=== PATIENT | male | born 1970 | race Caucasian/White ===

== ENCOUNTER 2021-02-21 15:17 | Outpatient (REF) | payer BC, SELFPAY ==
[2021-02-21 18:42] LABS: MANUAL DIFF FLAG NO
[2021-02-21 18:44] LABS: Basophils Percent Auto 0.3 % (0-2); Eosinophils Absolute Auto 0.2 X10*3/uL (0.0-0.4); Eosinophils Percent Auto 2.7 % (0-4); Hematocrit 42.8 % (42-52); Hemoglobin 14.8 g/dl (14.0-18.0); Imm Gran Abs Auto 0.03 X10*3/uL (0.00-0.03); Imm Gran Pct Auto 0.4 % (0.0-0.4); Lymphocytes Absolute Auto 1.3 X10*3/uL (1.2-4.9); Lymphocytes Percent Auto 19.1 % (20-40); Mean Corpuscular HGB Conc 34.6 g/dl (31.0-36.0); Mean Corpuscular Hemoglobin 31.9 pg (27.0-33.0); Mean Corpuscular Volume 92.2 fL (80-98); Mean Platelet Volume 9.7 fL (9.4-12.4); Monocytes Absolute Auto 0.5 X10*3/uL (0.1-1.2); Monocytes Percent Auto 7.1 % (2-11); Neutrophils Absolute Auto 4.8 X10*3/uL (2.0-8.3); Neutrophils Percent Auto 70.4 % (45-73); Platelet Count 274 X10*3/uL (160-400); Red Blood Count 4.64 X10*6/uL (4.60-5.80); Red Cell Distribution Width 12.2 % (11.0-16.0); White Blood Count 6.8 X10*3/uL (4.8-10.8)
[2021-02-21 19:07] LABS: Alanine Aminotransferase 32 U/L (0-40); Albumin Level 4.4 g/dL (3.5-5.0); Alkaline Phosphatase 126 U/L (39-117); Anion Gap 13 (12-20); Aspartate Amino Transferase 26 U/L (5-37); Bilirubin Total 0.5 mg/dL (0.0-1.0); Blood Urea Nitrogen 16 mg/dL (9-16); C Reactive Protein 0.29 mg/dL (< or = 0.50); Calcium 9.2 mg/dL (8.4-10.2); Carbon Dioxide 26 mmol/L (22-29); Chloride 106 mmol/L (96-108); Estimated Glomerular Filt Rate > 60; Glucose Random 104 mg/dL (60-115); Iron 145 mcg/dL (45-160); Percent Iron Saturation 48 % (15-50); Sodium 141 mmol/L (135-145); Total Iron Binding Capacity 303 mcg/dL (228-428); Total Protein 7.1 g/dL (6.5-8.0); Unsaturated Iron Binding 158 ug/dL
[2021-02-21 19:28] LABS: Ferritin 215 ng/mL (20-250)
[2021-02-21 19:40] LABS: Folate 7.4 ng/mL (> or = 4.0); Vitamin B12 295 pg/mL (200-900)
[2021-02-21 20:02] LABS: Erythrocyte Sedimentation Rate 6 MM/HR (0-15)
== END 2021-02-21 15:18 | disposition home or self-care (01) ==
LOC: HO.MANLDS 15:17
PROVIDERS: PCP Internal Medicine; Visit Provider Internal Medicine
DX: D64.9 Anemia, unspecified (principal); R10.32 Left lower quadrant pain
CPT/HCPCS: 36415; 80053; 82607; 82728; 82746; 83540; 85025; 85652; 86140

== ENCOUNTER → 2021-03-21 09:59 | Outpatient (BNVA) | payer OTHER, SELFPAY | PROVIDERS: PCP Internal Medicine; Visit Provider Internal Medicine | DX: S46.211A Strain of muscle, fascia and tendon of other parts of biceps, right arm, initial encounter (principal); X58.XXXA Exposure to other specified factors, initial encounter | CPT/HCPCS: 99203 ==

== ENCOUNTER 2023-07-09 16:11 | Outpatient (REF) | payer BC, SELFPAY ==
[2023-07-09 17:32] LABS: MANUAL DIFF FLAG NO
[2023-07-09 17:42] LABS: Basophils Percent Auto 0.4 % (0-2); Eosinophils Absolute Auto 0.2 X10*3/uL (0.0-0.4); Eosinophils Percent Auto 2.4 % (0-4); Hematocrit 45.3 % (42.0-52.0); Hemoglobin 15.5 g/dl (14.0-18.0); Imm Gran Abs Auto 0.03 X10*3/uL (0.00-0.03); Imm Gran Pct Auto 0.4 % (0.0-0.4); Lymphocytes Absolute Auto 1.6 X10*3/uL (1.2-4.9); Lymphocytes Percent Auto 22.2 % (20-40); Mean Corpuscular HGB Conc 34.2 g/dl (31.0-36.0); Mean Corpuscular Hemoglobin 31.3 pg (27.0-33.0); Mean Corpuscular Volume 91.5 fL (80.0-98.0); Mean Platelet Volume 9.8 fL (9.4-12.4); Monocytes Absolute Auto 0.7 X10*3/uL (0.1-1.2); Monocytes Percent Auto 9.3 % (2-11); Neutrophils Absolute Auto 4.6 x10*3/uL (2.0-8.3); Neutrophils Percent Auto 65.3 % (45-73); Platelet Count 288 X10*3/uL (160-400); Red Blood Count 4.95 X10*6/uL (4.60-5.80); Red Cell Distribution Width 12.5 % (11.0-16.0); White Blood Count 7.1 X10*3/uL (4.8-10.8)
[2023-07-09 18:18] LABS: Alanine Aminotransferase 29 U/L (0-40); Albumin Level 4.5 g/dL (3.5-5.0); Alkaline Phosphatase 133 U/L (39-117); Anion Gap 13 (12-20); Aspartate Amino Transferase 23 U/L (5-37); Bilirubin Total 0.5 mg/dL (0.0-1.0); Blood Urea Nitrogen 14 mg/dL (9-16); Calcium 9.5 mg/dL (8.4-10.2); Carbon Dioxide 24 mmol/L (22-29); Chloride 109 mmol/L (96-108); Estimated Glomerular Filt Rate > 60; Glucose Random 97 mg/dL (60-115); Potassium 3.9 mmol/L (3.3-5.1); Sodium 142 mmol/L (135-145); Total Protein 7.4 g/dL (6.5-8.0)
[2023-07-09 18:49] LABS: Folate 8.3 ng/mL (> or = 4.0); Vitamin B12 363 pg/mL (200-900)
[2023-07-09 20:55] LABS: Erythrocyte Sedimentation Rate 10 MM/HR (0-15)
[2023-07-15 09:49] LABS: Testosterone, Total 322 ng/dL (250-1100)
== END 2023-07-09 16:12 | disposition home or self-care (01) ==
LOC: HO.MANLDS 16:11
PROVIDERS: Visit Provider Internal Medicine
DX: K57.32 Diverticulitis of large intestine without perforation or abscess without bleeding (principal); R53.83 Other fatigue
CPT/HCPCS: 36415; 80053; 82607; 82746; 84403; 85025; 85652

== ENCOUNTER 2023-09-15 07:49 | Outpatient (REF) | payer BC, SELFPAY ==
--- NOTE | ~2023-09-15 | CT_ITS ---
EXAMINATION: CT ABDOMEN AND PELVIS WITH CONTRAST CLINICAL INFORMATION: Severe left lower quadrant abdominal pain COMPARISON: None available. TECHNIQUE: Multidetector volumetric images were obtained from the superior aspect of the liver through the pubic symphysis following administration 85 mL of Omnipaque 350 intravenous contrast. Sagittal and coronal reformatted images were obtained on the technologist's workstation. Oral contrast: No This CT examination was performed using dose optimization techniques as appropriate, variously including the following: *Automated exposure control *Adjustment of mA and/or kV according to patient size (this includes techniques or standardized protocols for targeted exams where dose is matched to indication/reason for exam; i.e. extremities or head) *Use of iterative reconstruction technique DLP: 650 mGy-cm FINDINGS: LUNG BASES: The visualized lung bases are unremarkable. LIVER, GALLBLADDER, AND BILIARY TREE: The liver is normal in size, shape, and attenuation. No focal hepatic lesion or biliary ductal dilatation is present. The gallbladder is unremarkable with no evidence of radiopaque gallstones, gallbladder wall thickening, or obvious pericholecystic inflammatory changes. PANCREAS: Unremarkable. SPLEEN: Unremarkable. ADRENAL GLANDS: Unremarkable. KIDNEYS AND URETERS: The kidneys are normal in size, shape, and attenuation. No hydronephrosis, hydroureter, or calculi seen. No perinephric stranding. BLADDER: Unremarkable. GASTROINTESTINAL TRACT: The small and large bowel are unremarkable. The appendix is not seen ABDOMINAL WALL: No significant hernia is appreciated. LYMPH NODES: Normal. VASCULAR: Unremarkable. PELVIC VISCERA: Unremarkable. OSSEOUS STRUCTURES: Unremarkable. CT/CT abdomen pelvis w IV con IMPRESSION: No significant abnormality. No explanation for abdominal Fleischner guidelines were followed.
[2023-09-15] MEDS: iohexoL 350 MG/ML 100 ML INFUS..BTL 85 ML IV (08:23)
== END 2023-09-15 07:50 | disposition home or self-care (01) ==
LOC: HO.CT 07:49
PROVIDERS: PCP Internal Medicine; Visit Provider Internal Medicine
DX: K57.32 Diverticulitis of large intestine without perforation or abscess without bleeding (principal)
CPT/HCPCS: 74177; Q9967

== ENCOUNTER 2024-04-15 12:32 | Emergency (ER) | payer OTHER, BC, SELFPAY ==
--- NOTE | ~2024-04-15 | XR_ITS ---
EXAMINATION: XR WRIST, LEFT CLINICAL INFORMATION: Pain distal ulna COMPARISON: None available. TECHNIQUE: PA, lateral, and oblique views of the left wrist. FINDINGS: Question slight deformity of the distal ulna may reflect old fracture Suspect mild arthrosis of the distal radioulnar joint with probable marginal osteophytes. Remaining bones joints and soft tissues unremarkable. XR/XR wrist LT 2V IMPRESSION: 1. 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 2. Slight deformity of the distal ulna may reflect old fracture. 3. No acute abnormality
--- NOTE | 2024-04-15 12:35 | ED.UPPEXIN ---
HPI - Extremity Injury (Upper) General Chief Complaint: Extremity Injury, Upper Stated Complaint: WRIST INJURY AFTER FIGHTING WITH SUSPECT PER EMS Time Seen by Provider: 04/15/24 12:39 Source: patient and EMS Mode of arrival: EMS Limitations: no limitations History of Present Illness ED Provider: Ginger leung APRN HPI narrative: 53 yo male who is right handed with no known medical history presents to the ER with complaints of left wrist pain. 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 The patient reports that the event happened very quickly and he can not recall the specific mechanism of action but does remember that when he 1st felt pain his wrist was pinned underneath the patient. He denies any associated swelling, numbness, tingling of the extremity. He has informed his employer Related Data Allergies Allergy/AdvReac Type Severity Reaction Status Date / Time prochlorperazine Allergy Unknown Verified 04/15/24 12:38 [From Compazine] Review of Systems Review of Systems: Yes all other systems are reviewed and are negative Constitutional: Constitutional: Reports no additional constitutional complaints, Denies body ache(s), Denies chills, Denies fever(s), Denies headache(s) and Denies weakness Eyes: Eyes: Reports no additional eye complaints and Denies change in vision ENT: Reports system reviewed and no additional complaints, except as documented, Denies dizziness, Denies headache(s), Denies nasal congestion, Denies nasal discharge and Denies neck pain Cardiovascular: Cardiovascular: Reports no additional cardiovascular complaints, Denies chest pain, Denies leg edema and Denies dyspnea Respiratory: Respiratory: Reports no additional respiratory complaints, Denies cough and Denies dyspnea Gastrointestinal: Gastrointestinal: Reports no additional gastrointestinal complaints, Denies abdominal pain, Denies diarrhea, Denies nausea and Denies vomiting Genitourinary: Genitourinary: Denies urinary incontinence Musculoskeletal: Musculoskeletal: Reports no additional musculoskeletal complaints, Denies back pain, Reports arthralgias, Denies joint swelling, Denies limited range of motion, Denies neck pain, Denies numbness and Denies tingling Integumentary/Breasts: Skin/Breast: Reports system reviewed and no additional complaints, except as docu and Denies rash Neurologic: Reports system reviewed and no additional complaints, except as documented, Denies Abnormal speech present, Denies dizziness, Denies headache(s), Denies numbness, Denies tingling and Denies weakness FOR[facility]LY [facility] Past Medical History Attestation statement: The following information was validated with the patient. Source: old records reviewed and nursing notes reviewed Social History Social History Advance Directives: No Advance Directives Information Provided: No Physical Exam Vital Signs: Vital Signs: Last Vital Signs Temp 98 F 04/15/24 12:36 Pulse 90 04/15/24 12:36 Resp 19 04/15/24 12:36 BP 124/93 H 04/15/24 12:36 Pulse Ox 98 04/15/24 12:36 O2 Del Method Room Air 04/15/24 12:36 BMI result Body Mass Index 32.2 Const: General: cooperative, healthy appearing, comfortable and no acute distress Orientation/consciousness: patient oriented x3 Limitations: no limitations HEENT: Head: Yes normal to inspection Ears: hearing grossly normal bilaterally General nose exam: Normal external nose present Face and sinus: Yes normal facial exam Mouth: Normal oral and palatal mucosa present Throat: Yes posterior oropharynx normal Eyes: General: appearance normal, both eyes and all related structures Pupils: Equal, round and reactive pupils present Neck: Neck: Yes normal visual inspection Chest: Chest palpation & inspection: normal inspection of the chest Resp: Effort & Inspection: normal respiratory effort Auscultation: clear to auscultation bilaterally Cardio: Rate: regular rate Rhythm: regular rhythm Peripheral pulses: Peripheral pulses 2+ throughout GI: Inspection: Yes normal to inspection Palpation (GI): Soft to palpation and nontender Auscultation: normal bowel sounds Back/Spine/Pelvis: Thoracic/Lumbar Spine: thoracic and lumbar spine normal to inspection Skin: General skin exam: no rashes or lesions noted Neuro: General: patient oriented x3, no focal motor deficits and normal sensation to monofilament Cranial nerves: Yes Equal, round and reactive pupils present Cognition (Neuro): normal cognition Speech: No Abnormal speech present Gait exam (Neuro): Normal gait present Motor exam (neuro): 5/5 motor strength present throughout Extrem: Other: Over the dorsal aspect of the distal wrist, laterally there is some swelling. The patient does have full range of motion of the wrist. He has full range of motion of the distal and proximal joints. He has normal sensation. 2+ radial and ulnar pulses. There is no pain on palpation I am able to elicit. Course Course Course Narrative: This is a rapid medical exam performed by Kay Card NP: Additional HPI, ROS, PE not included below will be deferred to primary provider. Patient is a 53-year-old right hand dominant male presenting to the ED with complaint of left wrist pain which began prior to arrival. 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 Pain to distal ulnar aspect of wrist, rates at 2/10. Plan: X-ray Reevaluation(s) Reevaluation #1: x-ray shows slight deformity of distal ulna which may represent an old fracture. I spoke to the patient denies any previous injury or fractures to this wrist. Based on the patient's clinical exam of swelling over the distal ulna and deformity seen on x-ray I will place him in a wrist splint and recommend he follow up outpatient with Orthopedics and were connection. Reviewed worrisome signs and symptoms when to return to the emergency room. Comfortable plan for discharge home. Medical Decision Making Medical Decision Making MDM Narrative: 53 yo male who is right handed with no known medical history presents to the ER with complaints of left wrist pain. 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 The patient reports that the event happened very quickly and he can not recall the specific mechanism of action but does remember that when he 1st felt pain his wrist was pinned underneath the patient. He denies any associated swelling, numbness, tingling of the extremity. He has informed his employer. Over the dorsal aspect of the distal wrist, laterally there is some swelling. The patient does have full range of motion of the wrist. He has full range of motion of the distal and proximal joints. He has normal sensation. 2+ radial and ulnar pulses. There is no pain on palpation I am able to elicit. Will check x-ray Differential Diagnosis Differential Diagnoses: The differential diagnosis associated with the presentation includes sprain, strain, fracture low suspicion for complex fracture, dislocation or vascular injury Admission/Observation Consideration of admission/observation: Escalation of care including admission/observation considered Low suspicion for complex fracture, dislocation or vascular injury requiring advanced imaging, urgent orthopedic consultation Independent Interpretation I performed an independent interpretation of an: Plain X-Ray Interpretation: I independently viewed the x-ray and agree with the radiology report Radiology Impression Discussion of test interpretation with radiology: I have reviewed the radiologist's reading. Radiologist Impression: [address] [address] XRay Report Signed Patient: Segun Mckeon MR#: [id number] : 1970 Acct:[id number] Age/Sex: 53 / M ADM Date: 04/15/24 Loc: HO.ED Attending Dr: Ordering Physician: Rosa Crad NP Date of Service: 04/15/24 Procedure(s): XR wrist LT 2V Accession Number(s): [id number] cc: Bhaskar Fisher MD; Rosa Card NP~ EXAMINATION: XR WRIST, LEFT CLINICAL INFORMATION: Pain distal ulna COMPARISON: None available. TECHNIQUE: PA, lateral, and oblique views of the left wrist. FINDINGS: Question slight deformity of the distal ulna may reflect old fracture Suspect mild arthrosis of the distal radioulnar joint with probable marginal osteophytes. Remaining bones joints and soft tissues unremarkable. XR/XR wrist LT 2V IMPRESSION: 1. 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 2. Slight deformity of the distal ulna may reflect old fracture. 3. No acute abnormality Tests considered The following testing was considered but not selected: low concern for complex fracture, dislocation or vascular injury requiring advanced imaging Prescription Management I considered prescription management with: Pain Medication Procedures Orthopedic Splinting/Casting Injury #1: Side: left Upper Extremity Injury Location: wrist Upper Extremity Immobilizer: aluminum form splint Discharge Plan Discharge Clinical Impression: Acute wrist pain Patient Disposition: Home, Self-Care Instructions: Wrist Injury (ED) Additional Instructions: Your x-ray shows a deformity or your distal ulna. We do not see any clear fracture however based on the deformity we do believe that you should use a Velcro splint at home and follow-up outpatient with both Orthopedics and work connection before returning to work. Apply ice as needed. Take Motrin or Tylenol for pain. [place] [facility] [facility] [place] [facility] [place] Group[place] - 1 week Stand Alone Forms: Work/School Release Print Language: Nepali
[2024-04-15 12:36] VITALS: BP 124/93; BP 128/87; PULSE 90; PULSE 98; RESP 19; TEMP 36.6; O2SAT 97; O2SAT 98; BMI 32.2
[2024-04-15 14:50] VITALS: BP 124/93; PULSE 90; RESP 19; TEMP 36.6; O2SAT 98
== END 2024-04-15 14:50 | disposition home or self-care (01) ==
PROVIDERS: Emergency Provider Emergency Medicine; PCP Internal Medicine
DX: Z04.2 Encounter for examination and observation following work accident (principal); M25.532 Pain in left wrist
CPT/HCPCS: 73100; 99282; 99283

== ENCOUNTER 2025-01-02 14:56 | Outpatient (REF) | payer OTHER, BC, SELFPAY ==
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
--- OUTSIDE RECORDS SUMMARY | 2025-01-02 18:16 | XMS_ITS | Continuity of Care Document ---
Author Organization [facility], [facility] Address [address] 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 Patient tolerating medication well at current dose without adverse effects. Refilled as below. Discussed plan with patient, who expressed understanding. [place]. 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) MDM HIGH MUST MEET 2 OUT OF [...] Lab testostero ne, total, serum 2024 025 [facility], [address] [place] [address], [id number], 5 16:43:23 vitamin B12 + folate, serum or blood 2024 025 [facility], [address] [place] [address], [id number], 5 16:43:23 vitamin D, 25-hydroxy , total, serum 2024 [facility], [address] [place] [address], [address], 5 16:43:23 CBC w/ auto diff 2024 [facility], [address] [place] [address], [address], 5 16:43:23 TSH + T4, serum 2024 [facility], [address] [place] [address], [address], 5 16:43:23 CMP, serum or plasma 2024 025 [facility], [address] [place] [address], [address], 5 16:43:23 iron + TIBC + ferritin, serum 2024 025 [facility], [address] [place] [address], [address], 5 16:43:23 lyme disease igg+igm, serum, reflex western blot 2024 025 [facility], [address] [place] [address], [address], 5 16:43:23 Referral None recorded. Procedures None recorded. Surgeries None recorded. Imaging CT, chest, w/o contrast - Not Required Procedure codes: [id number] Reference #: [id number] 9Resramsey n: Completed on 01/02/2025 at 12:33 pm. Call ref #[id number] 39. 2024 025 [facility], [address] [place], [address], 13:50:02 Medication Orders lorazepam 0.5 mg tablet 2024 025 [id number], [address], [place], [id number], 16:40:19 Patient TargetsNo targets recorded. Patient Instructions Encounter Date Encounter Id Patient Instructions Last Modified By Organization Details Last Modified Time 12/27/2024 [id number] cough: care instructions Not available 12/27/2024 16:30:09 gastroesophageal reflux disease (GERD): care instructions Not available 12/27/2024 16:35:58 Reason for Referral None Reported. Problems Name Problem SNOMED Code Status Onset Date Resolution Date Notes Provider Name and Address Organization Details Recorded Time Maxillary sinusitis 48111597 Active 2018 Right Christi alcantar [facility] 5 08:51:14 Gastroesop hageal reflux disease 998582687 Active 2018 Christi alcantar [facility] Internal [facility] 5 08:51:06 Tendinitis 84971910 Active 2018 R great toe Christi alcantar [facility] 5 08:51:14 Disorder of vitamin B12 755543434 Active 2018 Christi alcantar [facility] 5 08:51:14 Peptic ulcer 29288937 Active 2018 Christi alcantar [facility] 5 08:51:14 Multiple nodules of lung 896175918 Active 2018 Matilda alcantar [facility] 0 12:10:29 COVID-19 376125697 Active 2021 Christisharon Roy null, [facility] 5 08:51:13 Diverticul itis 028190384 Active 2022 Bhaskar Fisher, [address], [address], [facility] 3 16:32:37 Diverticul itis of sigmoid colon 083271218 Active 2022 Christi Roy null, [facility] 5 08:51:06 Solitary nodule of lung 980166215 Active 2022 Christisharon Roy null, [facility] 5 08:51:06 Fatigue 95132068 Active 2022 Christisharon Roy null, [facility] 5 08:51:06 Anxiety 26430860 Active 2022 Christisharon Roy null, [facility] 5 08:51:06 Computed tomography result abnormal 845182319 Active 2022 Christi Roy null, [facility] 5 08:51:13 Left lower quadrant pain 260288454 Active 2022 Christi Ryo null, [facility] 5 08:51:13 Cough 83317567 Active 2024 Bhaskar Fisher, [address] [place] [address], [address], [facility] 5 16:29:27 Problem Notes None recorded. Procedures Surgical History Date Name Laterality Status Provider Name and Address Organization Details Recorded Time 03/14/20 19 Colonoscopy completed Bhaskar Fisher DO [address] [place] [address], [address], [facility] 03/17/2019 06:49:50 Imaging Results None recorded. Procedure Notes None recorded. Medical Equipment None Reported. Allergies Allergen ID Allergen Name Allergen Category Reaction Reaction Severity Criticality Documentation Date Start Date Code Code System Note Provider Name and Address Organization Details Recorded Time 2803 Compazine medicatio n Not available Not available Not available 12/09/201834199 6 RxNorm Humera alcantar [facility] 9 09:21:03 Medications Name Sig [...] Available Not Available Not Available amoxicillin 875 mg-tyra nguyen clavulanate 125 mg tablet TAKE 1 TABLET [...] Available Not Available Vitals Date Recorded Body height Body mass index (BMI) Body weight Heart rate Oxygen saturation Oxygen saturation in Arterial blood by Pulse oximetry Systolic blood pressure Diastolic blood pressure Provider Name and Address Organization Details Last Updated DateTime 5 180.34 cm 33.2 kg/m2 459002. 42 g 79 /min 96 % 96 % 122 mm[Hg] 72 mm[Hg] [facility] 16:21:47 Social History Question Answer Notes LastModified by Organizat ion Details LastModified Time Tobacco Smoking Status Never Smoker Not Available [facility] 08/27/2020 03:36:23 What Was The Date Of Your Most Recent Tobacco Screening? 12/27/2024 [email or web address] Information not available 12/27/2024 Sex: Unknown Functional Status None recorded. Mental Status None recorded. Family History Nothing Reported. Medical History No medical history recorded. Immunizations Vaccine Type Date Status Note Provider Nam e and Address Organization Details Recorded Time zoster recombinant 5 completed Bhaskar Fisher DO [address] [place] [address], [place], [address], [facility] 11/25/2024 18:38:14 Influenza, split virus, quadrivalent, preservative 8 completed Matilda alcantar [facility] 01/03/2020 12:10:34 Tdap 9 completed Matilda alcantar [facility] 01/03/2020 12:10:34 Influenza, split virus, quadrivalent, preservative 9 [facility] 12:10:34 Past Encounters Encounter ID Performer Location Encounter Start Date Encounter Closed Date Diagnosis/Indication Diagnosis SNOMED-CT Code Diagnosis ICD10 Code Diagnosis Note [id number] Bhaskar Fisher DO [facility] [address] [facility],[place] [address] 12/27/2024 16:07:11 12/29/2024 08:02:59 Renewal of prescription 533280012 Z76.0 done Depression screening 171 496362 Z13.31 SCREENING NEGATIVE Cough 11141574 R05.9 ct ordered Fatigue 37658029 R53.83 will need to chk lab et Gastroesop hageal reflux disease 402980136 K21.9 quiet Multiple n odules of lung 902292017 R91.8 reassuranc e and will have a repeat ct exam we will catch this on his ct orderd Anxiety 74808628 F41.9 Health Concerns Section Related Observation LastModified by Organization Detai ls LastModified Time None Recorded Concern Status LastModified by Organization Details LastModified Time None Recorded Payers Encounter Date Sequence Insurance Name Policy Number Policy Hutchins Covered Member ID Hutchins Member ID Guarantor Name 12/27/2024 1 [facility] [place] [id number] Segun Mckeon [id number] Segun Mckeon Notes Date Note Type Note Provider Name a nd Address Organization Details Recorded Time 12/27/2024 text/html here for rechkrelates that he has been ok but having a great deal of fatigue Bhaskar Fisher, DO [address] [facility], [place], [address], [place] [facility] 12/27/2024 16:50:01
[2025-01-02 18:34] LABS: MANUAL DIFF FLAG NO
[2025-01-02 18:39] LABS: Basophils Percent Auto 0.5 % (0-2); Eosinophils Absolute Auto 0.2 X10*3/uL (0.0-0.4); Hematocrit 41.3 % (42.0-52.0); Hemoglobin 14.2 g/dl (14.0-18.0); Imm Gran Abs Auto 0.02 X10*3/uL (0.00-0.03); Imm Gran Pct Auto 0.3 % (0.0-0.4); Lymphocytes Absolute Auto 1.6 X10*3/uL (1.2-4.9); Lymphocytes Percent Auto 24.6 % (20-40); Mean Corpuscular HGB Conc 34.4 g/dl (31.0-36.0); Mean Corpuscular Hemoglobin 32.1 pg (27.0-33.0); Mean Corpuscular Volume 93.2 fL (80.0-98.0); Mean Platelet Volume 9.6 fL (9.4-12.4); Monocytes Absolute Auto 0.6 X10*3/uL (0.1-1.2); Monocytes Percent Auto 8.7 % (2-11); Neutrophils Percent Auto 62.9 % (45-73); Platelet Count 252 X10*3/uL (160-400); Red Blood Count 4.43 X10*6/uL (4.60-5.80); Red Cell Distribution Width 12.3 % (11.0-16.0); White Blood Count 6.3 X10*3/uL (4.8-10.8)
[2025-01-02 19:43] LABS: Alanine Aminotransferase 43 U/L (0-40); Albumin Level 4.1 g/dL (3.5-5.0); Alkaline Phosphatase 134 U/L (39-117); Anion Gap 9 (12-20); Aspartate Amino Transferase 30 U/L (5-37); Bilirubin Total 0.5 mg/dL (0.0-1.0); Blood Urea Nitrogen 16 mg/dL (9-16); Carbon Dioxide 26 mmol/L (22-29); Chloride 111 mmol/L (96-108); Estimated Glomerular Filt Rate > 60; Ferritin 353 ng/mL (20-250); Glucose Random 90 mg/dL (60-115); Iron 132 mcg/dL (45-160); Percent Iron Saturation 51 % (15-50); Sodium 142 mmol/L (135-145); Total Iron Binding Capacity 259 mcg/dL (228-428); Total Protein 7.2 g/dL (6.5-8.0); Unsaturated Iron Binding 127 ug/dL
[2025-01-02 19:46] LABS: Vitamin B12 323 pg/mL (200-900)
[2025-01-02 20:13] LABS: T4 Thyroxine 5.1 ug/dL (4.5-12.0)
[2025-01-03 09:13] LABS: Lyme Abs Screen <0.90 index
[2025-01-06 16:47] LABS: VITAMIN D (1,25 OH) D3 39 pg/mL; Vit D (1,25-Dihydroxy) Total 39 pg/mL (18-72); Vitamin D (1,25 OH) D2 <8 pg/mL
[2025-01-08 23:44] LABS: Testosterone, Total 249 ng/dL (250-1100)
== END 2025-01-02 14:57 | disposition home or self-care (01) ==
LOC: HO.MANLDS 14:56
PROVIDERS: Visit Provider Internal Medicine
DX: R53.83 Other fatigue (principal)
CPT/HCPCS: 36415; 80053; 82607; 82652; 82728; 83540; 84403; 84436; 84443; 85025; 86617; 86618

== ENCOUNTER 2025-01-10 13:51 | Outpatient (REF) | payer OTHER, BC, SELFPAY ==
[2025-01-15 01:49] LABS: Testosterone, Total 276 ng/dL (250-1100)
== END 2025-01-10 13:52 | disposition home or self-care (01) ==
LOC: HO.MANLDS 13:51
PROVIDERS: Visit Provider Internal Medicine
DX: R89.1 Abnormal level of hormones in specimens from other organs, systems and tissues (principal)
CPT/HCPCS: 36415; 84403

== ENCOUNTER 2025-01-23 09:02 | Outpatient (REF) | payer BC, SELFPAY ==
--- OUTSIDE RECORDS SUMMARY | 2025-01-23 09:50 | XMS_ITS | Data Portability ---
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 Follow [place] 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) MDM HIGH MUST MEET 2 OUT OF [...] Lab testostero ne, total, serum 2024 025 [facility], [address] [place] [address], [address], 5 12:27:55 vitamin B12 + folate, serum or blood 2024 025 [facility], [address] [place] [address], [address], 5 13:28:04 vitamin D, 25-hydroxy , total, serum 2024 025 [facility], [address] [place] [address], [address], 5 11:40:57 CBC w/ auto diff 2024 025 [facility], [address] [place] [address], [address], 5 16:43:23 TSH + T4, serum 2024 025 [facility], [address] [place] [address], 119[address], 5 16:43:23 CMP, serum or plasma 2024 025 [facility], [address] [place] [address], [address], 5 16:43:23 iron + TIBC + ferritin, serum 2024 025 [facility], [address] [place] [address], [address], 5 16:43:23 lyme disease igg+igm, serum, reflex western blot 2024 025 [email or web address] [facility], [address] [place] [address], [address], 5 16:41:00 CBC w/ auto diff 2022 023 [facility], [address] [place] [address], [address], 3 11:31:10 CMP, serum or plasma 2022 023 [facility], [address] [place] [address], [address], 3 11:31:09 ESR (erythrocy te sedimentat ion rate), blood 2022 023 [facility], [address] [place] [address], [address], 3 16:10:44 testostero ne, total, serum 2022 023 [facility], [address] [place] [address], [address], 3 12:31:57 vitamin B12 + folate, serum or blood 2022 023 [facility], [address] [place] [address], [address], 3 11:31:10 vitamin B12 + folate, serum or blood 2020 021 [facility], [address] [place] [address], [address], 11:57:26 iron + TIBC + ferritin, serum 2020 021 [facility], [address] [place] [address], [address], 11:57:26 CMP, serum or plasma 2020 021 [...] w/o contrast - Not Required Procedure codes: 21135Acgo Reference #: [id number] 9Resolutio n: Completed on 01/02/2025 at 12:33 pm. Call ref #[id number] 39. 2024 025 [facility], [address] [place], [address], 5 08:17:15 XR, knee, 3 view 2020 [facility], [address] [place], [address], 08:41:56 XR, lumbosacra l spine, 2 or 3 view 2020 021 [facility], [address] [place] [address], [address], 09:45:10 CT, abdomen + pelvis, w/ contrast 2020 021 [facility], [address] [place], [address], 09:45:09 Medication Orders lorazepam 0.5 mg tablet 2024 025 [facility]26, [address] [place] [address], [id number], 5 16:40:19 amoxicilli n 875 mg-potassi um clavulanat e 125 mg tablet 2022 023 [facility], [address], [place], [id number], 4 11:04:20 lorazepam 0.5 mg tablet 2022 023 [facility] #61499, [address] [place], [place], [id number], 3 16:09:17 Medrol (Chinedu) 4 mg tablets in a dose pack [address] [facility]116, [address], [place], [id number], 3 15:08:17 azithromyc in 250 mg tablet [address] [facility]10017, [address], [place], [id number], 3 15:07:12 Patient TargetsNo targets recorded. Patient Instructions Encounter Date Encounter Id Patient Instructions Last Modified By Organization Details Last Modified Time 02/21/2021 [id number] back care and preventing injuries: care instructions Not available 02/21/2021 15:08:30 getting back to normal after low back pain: care instructions Not available 02/21/2021 15:08:30 learning about relief for back pain Not available 02/21/2021 15:08:30 abdominal pain: care instructions Not available 02/21/2021 15:03:52 07/09/2023 [id number] gastroesophageal reflux disease (GERD): care instructions Not available 07/09/2023 16:04:10 12/27/2024 [id number] cough: care instructions Not available 12/27/2024 16:30:09 gastroesophageal reflux disease (GERD): care instructions Not available 12/27/2024 16:35:58 Reason for Referral None Reported. Results Created Date Observation Date Name Description Value Unit Range Abnormal Flag Note LastModifiedBy Organization Detail LastModifiedTime 03/25/20 21 03/25/2021 XR, knee No observ ation record ed. [email or web address] [facility] [address] [facility], [place], [address], 04/09/2021 08:09:19 04/29/20 21 04/29/2021 MRI, knee, w/o contr ast No observ ation record ed. [email or web address] [facility] (Mri) [address] [place], [address], 04/30/2021 08:59:42 09/23/20 23 09/15/2023 CT, abdom en + pelvi s, w/wo contr ast No observ ation record ed. [facility] (Medical Records) [address] [place], [address], 09/26/2023 21:45:49 04/15/20 24 04/15/2024 XR, wrist No observ ation record ed. [email or web address] [facility] (Medical Records) [address] [place], [address], 04/17/2024 08:29:41 Result Notes None recorded. Problems Name Problem SNOMED Code Status Onset Date Resolution Date Notes Provider Name and Address Organization Details Recorded Time Maxillary sinusitis 05324892 Active 2018 Right CHARLI [facility] 5 08:51:14 Gastroeso phageal reflux disease 008556253 Active 2018 CHARLI Rey [facility] 5 08:51:06 Tendiniti s 03291960 Active 2018 R great toe Christi alcantar [facility] 5 08:51:14 Disorder of vitamin B12 728978241 Active 2018 CHARLI [facility] 5 08:51:14 Peptic ulcer 17291861 Active [address] [facility] 5 08:51:14 Multiple nodules of lung 890967290 Active 2018 Matilda Bucko null, [facility] 0 12:10:29 COVID-19 085024056 Active 2021 Christisharon Roy null, [facility] 5 08:51:13 Diverticu litis 454602093 Active 2022 Bhaskar Fisher, [address], [address], [facility] 3 16:32:37 Diverticu litis of sigmoid colon 269463290 Active 2022 Christi Roy null, [facility] 5 08:51:06 Solitary nodule of lung 921843346 Active 2022 Christi Roy null, [facility] 5 08:51:06 Fatigue 62551366 Active 2022 Christisharon Roy [facility], [facility] 5 08:51:06 Anxiety 38281297 Active 2022 Christisharon Roy [facility], [facility] 5 08:51:06 Computed tomograph y result abnormal 309769032 Active 2022 Christisharon Roy [facility], [facility] 5 08:51:13 Left lower quadrant pain 371350528 Active 2022 Christi Roy [facility] 5 08:51:13 Cough 40277899 Active 2024 Bhaskar Fisher, [address] [place] [address], [address], [facility] 5 16:29:27 Hypotesto steronism 013678685855 4 Active 2024 Bhaskar Fisher DO [address] [place] [address], [address], [facility] 5 14:41:36 Problem Notes None recorded. Procedures Surgical History Date Name Laterality Status Provider Name and Address Organization Details Recorded Time 03/14/20 19 Colonoscopy completed Bhaskar Fisher DO [address] [place] [address], [address], [facility] 03/17/2019 06:49:50 Imaging Results Imaging Date Name Status LastModified by Organiz ation Details LastModified Time 03/25/2021 XR, knee completed [email or web address] [facility] [address] [place], [address], 04/09/2021 08:09:19 04/29/2021 MRI, knee, w/o contrast completed [email or web address] [facility] (Mri) [address] [place], [address], 04/30/2021 08:59:42 09/15/2023 CT, abdomen + pelvis, w/wo contrast completed [facility] (Medical Records) [address] [place], [address], 09/26/2023 21:45:49 04/15/2024 XR, wrist completed [email or web address] [place] [address] (Medical Records) [address] [place], [address], 04/17/2024 08:29:41 Procedure Notes None recorded. Medical Equipment None Reported. Allergies Allergen ID Allergen Name Allergen Category Reaction Reaction Severity Criticality Documentation Date Start Date Code Code System Note Provider Name and Address Organization Details Recorded Time 2803 Compazine medicatio n Not available Not available Not available 12/09/2018 6 RxNorm Humera alcantar [facility] 9 09:21:03 Medications Name Sig [...] TO 8 HOURS NEEDED FOR NAUSEA DIRECTED 03/05 /2025 completed Not Available Not Available Not Available [...] Available Not Available lorazepam 0.5 mg tablet TAKE 1 TABLET BY MOUTH THREE TIMES DAILY FOR 10 DAYS NEEDED active Not Available Not Available No t Available cephalexin 500 mg capsule 10/21 completed Not [...] hr tablet, extended release TAKE 1 TABLET DAILY active Not Available Not Available No t [...] Address Organization Details Last Updated DateTime 1 088646. 8 g 32.9 kg/m2 180.34 cm 92 /min 98 % 98 % 116 mm[Hg] 70 mm[Hg] Bhaskar Fisher, DO [address] [place], [address], [facility] 1 14:50:09 Date Recorded Body height Body mass index (BMI) Body weight Heart rate Oxygen saturation Oxygen saturation in Arterial blood by Pulse oximetry Systolic blood pressure Diastolic blood pressure Provider Name and Address Organization Details Last Updated DateTime 1 180.34 cm 32.9 kg/m2 810374. 8 g 91 /min 98 % 98 % 120 mm[Hg] 70 mm[Hg] Humera Gil [facility] 1 10:34:04 Date Recorded Body weight Heart rate Oxygen saturation Oxygen saturation in Arterial blood by Pulse oximetry Systolic blood pressure Diastolic blood pressure Provider Name and Address Organization Details Last Updated DateTime 3 746865. 43 g 82 /min 98 % 98 % 135 mm[Hg] 65 mm[Hg] Pamela Conley [facility] 3 15:12:53 Date Recorded Body height Body mass index (BMI) Body weight Heart rate Oxygen saturation Oxygen saturation in Arterial blood by Pulse oximetry Systolic blood pressure Diastolic blood pressure Provider Name and Address Organization Details Last Updated DateTime 5 180.34 cm 33.2 kg/m2 282385. 42 g 79 /min 96 % 96 % 122 mm[Hg] 72 mm[Hg] Christi Roy [facility] 16:21:47 Social History Question Answer Notes LastModified by Organizat ion Details LastModified Time Tobacco Smoking Status Never Smoker Not Available [facility] 08/27/2020 03:36:23 What Was The Date Of Your Most Recent Tobacco Screening? 12/27/2024 [email or web address] Information not available 12/27/2024 Sex: Unknown Functional Status None recorded. Mental Status None recorded. Family History Nothing Reported. Medical History No medical history recorded. Immunizations Vaccine Type Date Status Note Provider Nam e and Address Organization Details Recorded Time zoster recombinant 5 completed Bhaskar Fisher [address], [address], [facility] 11/25/2024 18:38:14 Influenza, split virus, quadrivalent, preservative 8 completed Matilda alcantar [facility] 01/03/2020 12:10:34 Tdap 9 completed Matilda alcantar [facility] 01/03/2020 12:10:34 Influenza, split virus, quadrivalent, preservative 9 completed Matilda alcantar [facility] 01/03/2020 12:10:34 Past Encounters Encounter ID Performer Location Encounter Start Date Encounter Closed Date Diagnosis/Indication Diagnosis SNOMED-CT Code Diagnosis ICD10 Code Diagnosis Note [id number] Bhaskar Fisher [facility] [address] [facility],[place] [address] 12/09/2018 11:16:33 12/09/2018 12:38:33 Left flank pain 869673178 R10.9 resolving believe this was from his trip Orchitis a nd epididymitis 649989670 N45.3 Stress 95516164 Z73.3 Disorder o f vitamin B12 648926717 E53.8 [id number] Bhaskar Fisher [facility] [address] [facility] [facility],[place] [address] 01/04/2019 15:47:34 01/04/2019 16:56:34 Painful rectal bleeding 490413068 K62.5 will need to have a colonsocop y given his LLQ abd pain as well as its response to the cipro ?divertic? Hemorrhoids 47538118 K64 .9 treated with anusol [id number] Bhaskar Fisher [facility] [address] [facility] [facility] [address] 05/26/2019 09:08:33 05/26/2019 10:15:01 Inguinal pain 551754584 R10.2 is going to move [employer] and will let us know Multiple n odules of lung 560570534 R91.8 reassuranc e and will have a repeat ct exam Adult heal th examination 362876433 Z00.00 [id number] Bhaskar Fisher DO [facility] [address] [facility] [facility] [address] 01/03/2020 11:49:36 01/03/2020 12:34:12 Pain of left testicle 8709392424 0500286 N50.812 pain in left testicle must r/o signif testicular path first [id number] Bhaskar Fisher DO [facility] [address] [facility] [facility],[place] [address] 02/21/2021 14:46:11 02/21/2021 15:44:00 Left lower quadrant pain 856699900 R10.32 Anemia 222951015 D64.9 Low back pain 615341815 M54.5 [id number] THOMAS NELSON [facility] [address] [place] [address], [place] [address] 03/25/2021 10:28:00 03/25/2021 11:26:13 Pain in right knee 0688484576 83604 M25.561 needs XR of the knee, concern for possible tissue tear needs fu work up Rupture of tendon of biceps 760487742 M66.821 following with NEOAna Maraí [id number] Bhaskar Fisher [facility] Medicine [address] [facility] [facility],[place] [address] 06/16/2022 15:26:41 06/17/2022 08:14:32 COVID-19 482299121 U07.1 [id number] Bhaskar Fisher [facility] [address] [facility],[place] [address] 07/09/2023 15:02:05 07/09/2023 16:12:04 Gastroesophageal reflux disease 197390328 K21.9 quiet Diverticul itis of sigmoid colon 445420415 K57.32 Multiple n odules of lung 958238013 R91.8 reassuranc e and will have a repeat ct exam we will catch this on his ct orderd Fatigue 66871610 R53.83 willneed to chk lab et Anxiety 94459858 F41.9 [id number] Bhaskar Fisher [facility] [address] [facility],[place] [address] 12/27/2024 16:07:11 12/29/2024 08:02:59 Renewal of prescription 359097934 Z76.0 done Depression screening 171 434384 Z13.31 SCREENING NEGATIVE Cough 57908287 R05.9 ct ordered Fatigue 84082935 R53.83 will need to chk lab et Gastroesop hageal reflux disease 062547188 K21.9 quiet Multiple n odules of lung 933931601 R91.8 reassuranc e and will have a repeat ct exam we will catch this on his ct orderd Anxiety 90273410 F41.9 Health Concerns Section Related Observation LastModified by Organization Detai ls LastModified Time None Recorded Concern Status LastModified by Organization Details LastModified Time None Recorded Advance Directives Directive None Recorded Payers Encounter Date Sequence Insurance Name Policy Number Policy Hutchins Covered Member ID Hutchins Member ID Guarantor Name 02/21/2021 1 [place] [facility] ([facility] [id number] Segun Mckeon [id number] Segun Mckeon 03/25/2021 1 [place] [facility] ([facility] [id number] Segun Mckeon [id number] Segun Mckeon 06/16/2022 1 [place] [facility] ([facility] [id number] Segun Mckeon [id number] Segun Mckeon 07/09/2023 1 [place] [facility] ([facility] [id number] Segun Mckeon [id number] Segun Mckeon Mike 12/27/2024 1 [place] [facility] ([facility] [id number] Segun Mckeon [id number] Segun Mckeon Notes Date Note Type [...] chills some nocturnal diaphoresis no diarrhea Bhaskar Fisher, [address] [place], [address], [facility] 02/21/2021 15:12:53 1 text/html accident/poison [...] on his right side THOMAS NELSON [address] [facility], [place], [address], [facility] 03/25/2021 10:55:25 2 text/html patient is evaluated via tele/video assessment per patient consentduring current pandemiconset of covid today hit hard like [facility] test positiveheadache , fever to 101 , sore throat , aches Bhaskar Fisher DO [address] [place], [address], [facility] 06/16/2022 16:24:32 3 text/html here for rechk and is overall ok except for the probwith the diverticit is becoming a major problem in that it is recurring and he is having severe pain in d=sigmoid area and having abdom distentionno vomiting sl nauseadoes feel feverish Bhaskar Fisher DO [address] [place], [address], [facility] 07/09/2023 16:09:30 5 text/html here for rechkrelates that he has been ok but having a great deal of fatigue Bhaskar Fisher DO [address] [place], [address], [facility] 12/27/2024 16:50:01
[2025-01-27 10:53] LABS: Testosterone, Total 187 ng/dL (250-1100)
== END 2025-01-23 09:03 | disposition home or self-care (01) ==
LOC: HO.MANLDS 09:02
PROVIDERS: Visit Provider Internal Medicine
DX: R89.1 Abnormal level of hormones in specimens from other organs, systems and tissues (principal)
CPT/HCPCS: 36415; 84403

== ENCOUNTER 2025-02-07 09:08 | Outpatient (REF) | payer BC, SELFPAY ==
--- OUTSIDE RECORDS SUMMARY | 2025-02-07 09:51 | XMS_ITS | Data Portability ---
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 [place] 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) MDM HIGH MUST MEET 2 OUT OF [...] Lab testostero ne, total, serum 2024 025 [facility], [address] [place] [address], [address], 5 12:27:55 vitamin B12 + folate, serum or blood 2024 025 [facility], [address] [place] [address], [address], 5 13:28:04 vitamin D, 25-hydroxy , total, serum 2024 025 [facility], [address] [place] [address], [address], 5 11:40:57 CBC w/ auto diff 2024 025 [facility], [address] [place] [address], [address], 5 16:43:23 TSH + T4, serum 2024 025 [facility], [address] [place] [address], [address], 5 16:43:23 CMP, serum or plasma 2024 025 [facility], [address] [place] [address], [address], 5 16:43:23 iron + TIBC + ferritin, serum 2024 025 [facility], [address] [place] [address], [address], 5 16:43:23 lyme disease igg+igm, serum, reflex western blot 2024 025 [email or web address] [facility], [address] [place] [address], [address], 5 16:41:00 CBC w/ auto diff 2022 023 [facility], [address] [place] [address], [address], 3 11:31:10 CMP, serum or plasma 2022 023 [facility], [address] [place] [address], [address], 3 11:31:09 ESR (erythrocy te sedimentat ion rate), blood 2022 023 [facility], [address] [place] [address], [address], 3 16:10:44 testostero ne, total, serum 2022 023 [facility], [address] [place] [address], [address], 3 12:31:57 vitamin B12 + folate, serum or blood 2022 023 [facility], [address] [place] [address], [address], 3 11:31:10 vitamin B12 + folate, serum or blood 2020 021 [facility], [address] [place] [address], [address], 11:57:26 iron + TIBC + ferritin, serum 2020 021 [facility], [address] [place] [address], [address], 11:57:26 CMP, serum or plasma 2020 021 ANTOINETTE Not available 11:57:26 CBC w/ auto diff 2020 021 ANTOINETTE Not available 11:57:26 ESR (erythrocy te sedimentat ion rate), blood 2020 021 ANTOINETTE Not available 11:57:26 C-reactive protein, quantitati ve, serum or plasma 2020 021 [email or web address] Not available 15:10:48 Referral None recorded. Procedures None recorded. Surgeries None recorded. Imaging CT, chest, w/o contrast - Not Required Procedure codes: 40611Geno Reference #: [id number] 9Resolutio n: Completed on 01/02/2025 at 12:33 pm. Call ref #[id number] 39. 2024 025 [facility], [address] [place], [address], 5 08:17:15 XR, knee, 3 view 2020 [facility], [address] [place], [address], 1 08:41:56 XR, lumbosacra l spine, 2 or 3 view 2020 021 [facility], [address] [place], [address], 1 09:45:10 CT, abdomen + pelvis, w/ contrast 2020 021 [facility], [address] [place], [address], 1 09:45:09 Medication Orders lorazepam 0.5 mg tablet 2024 025 ANTOINETTE Not available 5 16:40:19 amoxicilli n 875 mg-potassi um clavulanat e 125 mg tablet 2022 023 [email or web address] Not available 4 11:04:20 lorazepam 0.5 mg tablet 2022 023 ANTOINETTE Not available 3 16:09:17 Medrol (Chinedu) 4 mg tablets in a dose pack 2021 022 [email or web address] Not available 15:08:17 azithromyc in 250 mg tablet 2021 022 [email or web address] Not available 15:07:12 Patient TargetsNo targets recorded. Patient Instructions Encounter Date Encounter Id Patient Instructions Last Modified By Organization Details Last Modified Time 02/21/2021 [id number] back care and preventing injuries: care instructions Not available 02/21/2021 15:08:30 getting back to normal after low back pain: care instructions Not available 02/21/2021 15:08:30 learning about relief for back pain Not available 02/21/2021 15:08:30 abdominal pain: care instructions Not available 02/21/2021 15:03:52 07/09/2023 [id number] gastroesophageal reflux disease (GERD): care instructions Not available 07/09/2023 16:04:10 12/27/2024 [id number] cough: care instructions Not available 12/27/2024 16:30:09 gastroesophageal reflux disease (GERD): care instructions Not available 12/27/2024 16:35:58 Reason for Referral None Reported. Results Created Date Observation Date Name Description Value Unit Range Abnormal Flag Note LastModifiedBy Organization Detail LastModifiedTime 03/25/2003/25/2021 XR, knee No observ ation record ed. [email or web address] [facility] [address] [place], [address], 04/09/2021 08:09:19 04/29/20 21 04/29/2021 MRI, knee, w/o contr ast No observ ation record ed. [email or web address] [facility] (Mri) [address] [place], [address], 04/30/2021 08:59:42 09/23/20 23 09/15/2023 CT, abdom en + pelvi s, w/wo contr ast No observ ation record ed. [facility] (Medical Records) [address] [place], [address], 09/26/2023 21:45:49 04/15/20 24 04/15/2024 XR, wrist No observ ation record ed. [email or web address] [facility] (Medical Records) [address] [place], [address], 04/17/2024 08:29:41 Result Notes None recorded. Problems Name Problem SNOMED Code Status Onset Date Resolution Date Notes Provider Name and Address Organization Details Recorded Time Maxillary sinusitis 31477031 Active 2018 Right Christi alcantar [facility] 5 08:51:14 Gastroeso phageal reflux disease 894622905 Active 2018 Christi alcantar [facility] 5 08:51:06 Tendiniti s 69620242 Active 2018 R great toe Christi alcantar [facility] 5 08:51:14 Disorder of vitamin B12 332047785 Active 2018 Christisharon alcantar [facility] 5 08:51:14 Peptic ulcer 39390919 Active 2018 Christi alcantar [facility] 5 08:51:14 Multiple nodules of lung 333761708 Active 2018 Matilda alcantar [facility] 0 12:10:29 COVID-19 895107818 Active 2021 Christi alcantar [facility] 5 08:51:13 Diverticu litis 572079043 Active 2022 Bhaskar Fisher, DO [address] [facility], [place], [address], [facility] 3 16:32:37 Diverticu litis of sigmoid colon 486542907 Active 2022 Christisharon alcantar [facility] 5 08:51:06 Solitary nodule of lung 721558017 Active 2022 Christi Roy null, [facility] 5 08:51:06 Fatigue 78480539 Active 2022 Christisharon Roy null, [facility] 5 08:51:06 Anxiety 66029908 Active 2022 Christisharon Roy null, [facility] 5 08:51:06 Computed tomograph y result abnormal 032948604 Active 2022 Christi Roy null, [facility] 5 08:51:13 Left lower quadrant pain 021036595 Active 2022 Christisharon Roy null, [facility] 5 08:51:13 Cough 81071499 Active 2024 Bhaskar Fisher DO [address] [place] [address], [address], [facility] 5 16:29:27 Hypotesto steronism 126295181183 4 Active 2024 Bhaskar Fisher DO [address] [place] [address], [address], [facility] 5 14:41:36 Problem Notes None recorded. Procedures Surgical History Date Name Laterality Status Provider Name and Address Organization Details Recorded Time 03/14/20 19 Colonoscopy completed Bhaskar Fisher DO [address] [place] [address], [address], [facility] 03/17/2019 06:49:50 Imaging Results Imaging Date Name Status LastModified by Organiz ation Details LastModified Time 03/25/2021 XR, knee completed [facility] [address] [place], [address], 04/09/2021 08:09:19 04/29/2021 MRI, knee, w/o contrast completed [email or web address] (Mri) [address] [place], [address], 04/30/2021 08:59:42 09/15/2023 CT, abdomen + pelvis, w/wo contrast completed [facility] (Medical Records) [address] [place], [address], 09/26/2023 21:45:49 04/15/2024 XR, wrist completed [email or web address] [facility] (Medical Records) [address] [place], [address], 04/17/2024 08:29:41 Procedure Notes None recorded. Medical Equipment None Reported. Allergies Allergen ID Allergen Name Allergen Category Reaction Reaction Severity Criticality Documentation Date Start Date Code Code System Note Provider Name and Address Organization Details Recorded Time 2804 Compazine medicatio n Not available Not available Not available 12/09/201817283 6 RxNorm Humera alcantar [place] - [facility] 9 09:21:03 Medications Name [...] completed Not Available Not Available Not Available testosteron e 1 % (50 mg/5 gram) transdermal gel packet apply 1pkt daily 2024 active Not Available Not Available Not Avai lable oxycodone 5 mg tablet TAKE 1 TABLET [...] completed Not Available Not Available Not Available testosteron e 50 mg/5 gram (1 %) transdermal gel Apply by transderm al route for 30 days. active Not Available Not Available No t Available GaviLyte-G 236 gram-22.74 gram-6.74 gram-5.86 gram [...] Address Organization Details Last Updated DateTime 1 135595. 8 g 32.9 kg/m2 180.34 cm 92 /min 98 % 98 % 116 mm[Hg] 70 mm[Hg] Bhaskar Fisher, DO [address] [place], [address] 1 14:50:09 Date Recorded Body height Body mass index (BMI) Body weight Heart rate Oxygen saturation Oxygen saturation in Arterial blood by Pulse oximetry Systolic blood pressure Diastolic blood pressure Provider Name and Address Organization Details Last Updated DateTime 1 180.34 cm 32.9 kg/m2 354842. 8 g 91 /min 98 % 98 % 120 mm[Hg] 70 mm[Hg] Humera Gil [facility] 1 10:34:04 Date Recorded Body weight Heart rate Oxygen saturation Oxygen saturation in Arterial blood by Pulse oximetry Systolic blood pressure Diastolic blood pressure Provider Name and Address Organization Details Last Updated DateTime 3 526685. 43 g 82 /min 98 % 98 % 135 mm[Hg] 65 mm[Hg] Pamela Conley [facility] 3 15:12:53 Date Recorded Body height Body mass index (BMI) Body weight Heart rate Oxygen saturation Oxygen saturation in Arterial blood by Pulse oximetry Systolic blood pressure Diastolic blood pressure Provider Name and Address Organization Details Last Updated DateTime 5 180.34 cm 33.2 kg/m2 293209. 42 g 79 /min 96 % 96 % 122 mm[Hg] 72 mm[Hg] Christi Roy [facility] 5 16:21:47 Social History Question [...] Vaccine Type Date Status Note Provider Bright e and Address Organization Details Recorded Time zoster recombinant 5 completed Bhaskar Fisher DO [address] [place] [address], [address], [facility] 11/25/2024 18:38:14 zoster recombinant 5 completed Kimo alcantar [facility] 02/02/2025 14:52:21 Influenza, split virus, quadrivalent, preservative 8 completed Matilda alcantar [facility] 01/03/2020 12:10:34 Tdap 9 completed Matilda alcantar [facility] 01/03/2020 12:10:34 Influenza, split virus, quadrivalent, preservative 9 jose enrique alcantar [facility] 01/03/2020 12:10:34 Past Encounters Encounter ID Performer Location Encounter Start Date Encounter Closed Date Diagnosis/Indication Diagnosis SNOMED-CT Code Diagnosis ICD10 Code Diagnosis Note [id number] Bhaskar Fisher [address],[place] [address] 12/09/2018 11:16:33 12/09/2018 12:38:33 Left flank pain 017534285 R10.9 resolving believe this was from his trip Orchitis a nd epididymitis 347710933 N45.3 Stress 20017804 Z73.3 Disorder o f vitamin B12 440917719 E53.8 [id number] Bhaskar Fisher [facility] [address],[place] [address] 01/04/2019 15:47:34 01/04/2019 16:56:34 Painful rectal bleeding 764130796 K62.5 will need to have a colonsocop y given his LLQ abd pain as well as its response to the cipro ?divertic? Hemorrhoids 15593576 K64 .9 treated with anusol [id number] Bhaskar Fisher [facility] [address] [facility],[place] [address] 05/26/2019 09:08:33 05/26/2019 10:15:01 Inguinal pain 007043417 R10.2 is going to move [employer] and will let us know Multiple n odules of lung 717129200 R91.8 reassuranc e and will have a repeat ct exam Adult [facility] th examination 985825957 Z00.00 [id number] Bhaskar Fisher [facility] [address] [facility], [place] [address] 01/03/2020 11:49:36 01/03/2020 12:34:12 Pain of left testicle 6710426673 0107482 N50.812 pain in left testicle must r/o signif testicular path first [id number] Bhaskar Fisher [facility] [address] [place] [address], [place] [address] 02/21/2021 14:46:11 02/21/2021 15:44:00 Left lower quadrant pain 690369775 R10.32 Anemia 085187854 D64.9 Low back pain 999259221 M54.5 [id number] THOMAS NELSON [facility] [address] [place] [address], [place] [address] 03/25/2021 10:28:00 03/25/2021 11:26:13 Pain in right knee 6281944212 63819 M25.561 needs XR of the knee, concern for possible tissue tear needs fu work up Rupture of tendon of biceps 699663339 M66.821 following with NEOS [id number] Bhaskar Fisher [facility] [address] [facility], [place] [address] 06/16/2022 15:26:41 06/17/2022 08:14:32 COVID-19 656047806 U07.1 [id number] Bhaskar Fisher [facility] [address] [facility], [place] [address] 07/09/2023 15:02:05 07/09/2023 16:12:04 Gastroesophageal reflux disease 801547649 K21.9 quiet Diverticul itis of sigmoid colon 767874734 K57.32 Multiple n odules of lung 696927904 R91.8 reassuranc e and will have a repeat ct exam we will catch this on his ct orderd Fatigue 57991861 R53.83 willneed to chk lab et Anxiety 15550051 F41.9 [id number] Bhaskar Fisher DO [facility] [address] [facility],[place] [address] 12/27/2024 16:07:11 12/29/2024 08:02:59 Renewal of prescription 058694791 Z76.0 done Depression screening 171 685835 Z13.31 SCREENING NEGATIVE Cough 94792853 R05.9 ct ordered Fatigue 38649055 R53.83 will need to chk lab et Gastroesop hageal reflux disease 494841730 K21.9 quiet Multiple n odules of lung 177071735 R91.8 reassuranc e and will have a repeat ct exam we will catch this on his ct orderd Anxiety 08110769 F41.9 Health Concerns Section Related Observation LastModified by Organization Detai ls LastModified Time None Recorded Concern Status LastModified by Organization Details LastModified Time None Recorded Advance Directives Directive None Recorded Payers Encounter Date Sequence Insurance Name Policy Number Policy Hutchins Covered Member ID Hutchins Member ID Guarantor Name 02/21/2021 1 [place] [facility] [id number] Segun Mckeon [id number] Segun Mckeon 03/25/2021 1 [place] [facility] [id number] Segun Mckeon [id number] Segun Mckeon 06/16/2022 1 [place] [facility] [id number] Segun Mckeon [id number] Segun Mckeon 07/09/2023 1 [place] [facility] [id number] Segun Mckeon [id number] Segun Mckeon 12/27/2024 1 [place] [facility] [id number] eSgun Mckeon [id number] Segun Mckeon Notes Date Note Type [...] nocturnal diaphoresis no diarrhea Bhaskar Fisher, [address] [place], [address], [facility] 02/21/2021 15:12:53 [...] on his right side THOMAS NELSON [address] [place], [address], [facility] 03/25/2021 10:55:25 2 text/html patient is evaluated via tele/video assessment per patient consentduring current pandemiconset of covid today hit hard like a freight trainhome covid test positiveheadache , fever to 101 , sore throat , aches Bhaskar Fisher DO [address] [place], [address], [facility] 06/16/2022 16:24:32 3 text/html here for rechk and is overall ok except for the probwith the diverticit is becoming a major problem in that it is recurring and he is having severe pain in d=sigmoid area and having abdom distentionno vomiting sl nauseadoes feel feverish Bhaskar Fisher DO [address] [place], [address], [facility] 07/09/2023 16:09:30 5 text/html here for rechkrelates that he has been ok but having a great deal of fatigue Bhaskar Fisher DO [address] [place], [address], [facility] 12/27/2024 16:50:01
[2025-02-11 14:24] LABS: Testosterone, Total 284 ng/dL (250-1100)
== END 2025-02-07 09:09 | disposition home or self-care (01) ==
LOC: HO.MANLDS 09:08
PROVIDERS: Visit Provider Internal Medicine
DX: R89.1 Abnormal level of hormones in specimens from other organs, systems and tissues (principal)
CPT/HCPCS: 36415; 84403

== ENCOUNTER 2025-03-09 09:31 | Outpatient (REF) | payer BC, SELFPAY ==
--- OUTSIDE RECORDS SUMMARY | 2025-03-09 09:45 | XMS_ITS | Data Portability ---
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 Follow up as [place] [id number] [place] [id number] (ARTS ADMINISTRATOR OR MANAGER) MDM HIGH MUST MEET 2 OUT OF [...] Lab testostero ne, total, serum 2024 025 [facility], [address] [place] [address], [address], 5 12:27:55 vitamin B12 + folate, serum or blood 2024 025 [facility], [address] [place] [address], [address], 5 13:28:04 vitamin D, 25-hydroxy , total, serum 2024 025 [facility], [address] [place] [address], [address], 5 11:40:57 CBC w/ auto diff 2024 025 [facility], [address] [place] [address], [address], 5 16:43:23 TSH + T4, serum 2024 025 [facility], [address] [place] [address], [address], 5 16:43:23 CMP, serum or plasma 2024 025 [facility], [address] [place] [address], [address], 5 16:43:23 iron + TIBC + ferritin, serum 2024 025 [facility], [address] [place] [address], [address], 5 16:43:23 lyme disease igg+igm, serum, reflex western blot 2024 025 [email or web address] [facility], [address] [place] [address], [address], 5 16:41:00 CBC w/ auto diff 2022 023 [facility], [address] [place] [address], 10[address], 3 11:31:10 CMP, serum or plasma 2022 023 [facility], [address] [place] [address], [address], 3 11:31:09 ESR (erythrocy te sedimentat ion rate), blood 2022 023 [facility], [address] [place] [address], [address], 3 16:10:44 testostero ne, total, serum 2022 023 [facility], [address] [place] [address], [address], 3 12:31:57 vitamin B12 + folate, serum or blood 2022 023 [facility], [address] [place] [address], [address], 3 11:31:10 vitamin B12 + folate, serum or blood 2020 021 [facility], [address] [place] [address], [address], 11:57:26 iron + TIBC + ferritin, serum 2020 021 [facility], [address] [place] [address], [address], 11:57:26 CMP, serum or plasma 2020 021 [...] w/o contrast - Not Required Procedure codes: 86337Zibh Reference #: [id number] 9Resolutio n: Completed on 01/02/2025 at 12:33 pm. Call ref #[id number] 39. 2024 025 [facility], [address] [place], [address], 5 08:17:15 XR, knee, [address] [facility], [address] [place], [address], 1 08:41:56 XR, lumbosacra l spine, 2 or 3 view 2020 021 [facility], [address] [place], [address], 1 09:45:10 CT, abdomen + pelvis, w/ contrast 2020 021 [facility], [address] [place], [address], 1 09:45:09 Medication Orders lorazepam 0.5 mg [...] By Organization Details Last Modified Time 02/21/2021 [id number] back care and preventing injuries: care instructions Not available 02/21/2021 15:08:30 getting back to normal after low back pain: care instructions Not available 02/21/2021 15:08:30 learning about relief for back pain Not available 02/21/2021 15:08:30 abdominal pain: care instructions Not available 02/21/2021 15:03:52 07/09/2023 [id number] gastroesophageal reflux disease (GERD): care instructions Not available 07/09/2023 16:04:10 12/27/2024 [id number] cough: care instructions Not available 12/27/2024 16:30:09 gastroesophageal reflux disease (GERD): care instructions Not available 12/27/2024 16:35:58 Reason for Referral None Reported. Results Created Date Observation Date Name Description Value Unit Range Abnormal Flag Note LastModifiedBy Organization Detail LastModifiedTime 03/25/2003/25/2021 XR, knee No observ ation record ed. [email or web address] [facility] [address] [place], [address], 04/09/2021 08:09:19 04/29/20 21 04/29/2021 MRI, knee, w/o contr ast No observ ation record ed. [email or web address] [facility] (Mri) [address] [place], [address], 04/30/2021 08:59:42 09/23/20 23 09/15/2023 CT, abdom en + pelvi s, w/wo contr ast No observ ation record ed. [facility] (Medical Records) [address] [place], [address], 09/26/2023 21:45:49 04/15/20 24 04/15/2024 XR, wrist No observ ation record ed. [email or web address] [facility] (Medical Records) [address] [place], [address], 04/17/2024 08:29:41 Result Notes None recorded. Problems Name Problem SNOMED Code Status Onset Date Resolution Date Notes Provider Name and Address Organization Details Recorded Time Maxillary sinusitis 68906585 Active 2018 Right Christi alcantar [facility] 5 08:51:14 Gastroeso phageal reflux disease 435648591 Active 2018 Christi alcantar [facility] 5 08:51:06 Tendiniti s 01719679 Active 2018 R great toe Christi alcantar [facility] 5 08:51:14 Disorder of vitamin B12 068566777 Active 2018 Christisharon alcantar [facility] 5 08:51:14 Peptic ulcer 74289070 Active 2018 Christi alcantar [facility] 5 08:51:14 Multiple nodules of lung 468324410 Active 2018 Matilda alcantar [facility] 0 12:10:29 COVID-19 974354634 Active 2021 Christi alcantar [facility] 5 08:51:13 Diverticu litis 516649196 Active 2022 Bhaskar Fisher, DO [address] [facility], [place], [address], [facility] Internal [facility] 3 16:32:37 Diverticu litis of sigmoid colon 415774006 Active 2022 Christisharon alcantar [facility] 5 08:51:06 Solitary nodule of lung 836705681 Active 2022 Christi Roy null, [facility] 5 08:51:06 Fatigue 20293641 Active 2022 Christisharon Roy null, [facility] 5 08:51:06 Anxiety 98235607 Active 2022 Christisharon Roy null, [facility] 5 08:51:06 Computed tomograph y result abnormal 237306567 Active 2022 Christi Roy null, [facility] 5 08:51:13 Left lower quadrant pain 121453325 Active 2022 Christisharon Roy null, [facility] 5 08:51:13 Cough 75841584 Active 2024 Bhaskar Fisher DO [address] [place] [address], [address], [facility] 5 16:29:27 Hypotesto steronism 679568820327 4 Active 2024 Bhaskar Fisher DO [address] [place] [address], [address], [facility] 5 14:41:36 Problem Notes None recorded. Procedures Surgical History Date Name Laterality Status Provider Name and Address Organization Details Recorded Time 03/14/20 19 Colonoscopy completed Bhaskar Fisher DO [address] [place] [address], [address], [facility] 03/17/2019 06:49:50 Imaging Results Imaging Date Name Status LastModified by Organiz ation Details LastModified Time 03/25/2021 XR, knee completed [facility] [address] [place], [address], 04/09/2021 08:09:19 04/29/2021 MRI, knee, w/o contrast completed [email or web address] (Mri) [address] [place], [address], 04/30/2021 08:59:42 09/15/2023 CT, abdomen + pelvis, w/wo contrast completed [facility] (Medical Records) [address] [place], [address], 09/26/2023 21:45:49 04/15/2024 XR, wrist completed [email or web address] [facility] (Medical Records) [address] [place], [address], 04/17/2024 08:29:41 Procedure Notes None recorded. Medical Equipment None Reported. Allergies Allergen ID Allergen Name Allergen Category Reaction Reaction Severity Criticality Documentation Date Start Date Code Code System Note Provider Name and Address Organization Details Recorded Time 2807 Compazine medicatio n Not available Not available Not available 12/09/201838961 6 RxNorm Humera alcantar [place] - [facility] 9 09:21:03 Medications Name Sig [...] % (50 mg/5 gram) transdermal gel packet APPLY THE CONTENTS OF 1 PACKET DAILY active Not Available Not Available No t Available oxycodone 5 mg tablet TAKE 1 [...] Address Organization Details Last Updated DateTime 1 047725. 8 g 32.9 kg/m2 180.34 cm 92 /min 98 % 98 % 116 mm[Hg] 70 mm[Hg] Bhaskar Fisher, DO [address] [place], [address], [facility] 1 14:50:09 Date Recorded Body height Body mass index (BMI) Body weight Heart rate Oxygen saturation Oxygen saturation in Arterial blood by Pulse oximetry Systolic blood pressure Diastolic blood pressure Provider Name and Address Organization Details Last Updated DateTime 1 180.34 cm 32.9 kg/m2 623362. 8 g 91 /min 98 % 98 % 120 mm[Hg] 70 mm[Hg] Humera Gil [facility] 1 10:34:04 Date Recorded Body weight Heart rate Oxygen saturation Oxygen saturation in Arterial blood by Pulse oximetry Systolic blood pressure Diastolic blood pressure Provider Name and Address Organization Details Last Updated DateTime 3 153351. 43 g 82 /min 98 % 98 % 135 mm[Hg] 65 mm[Hg] Pamela Conley [facility] 3 15:12:53 Date Recorded Body height Body mass index (BMI) Body weight Heart rate Oxygen saturation Oxygen saturation in Arterial blood by Pulse oximetry Systolic blood pressure Diastolic blood pressure Provider Name and Address Organization Details Last Updated DateTime 5 180.34 cm 33.2 kg/m2 390250. 42 g 79 /min 96 % 96 % 122 mm[Hg] 72 mm[Hg] Christi Roy [facility] 5 16:21:47 Social History [...] zoster recombinant 5 completed Bhaskar Fisher DO [address] [place] [address], [address], [facility] Internal [facility] 11/25/2024 18:38:14 zoster recombinant 5 completed Kimo alcantar [facility] 02/02/2025 14:52:21 Influenza, split virus, quadrivalent, preservative 8 completed Matilda alcantar [facility] 01/03/2020 12:10:34 Tdap 9 completed Matilda alcantar [facility] 01/03/2020 12:10:34 Influenza, split virus, quadrivalent, preservative 9 completed Matildadaniel alcantar [facility] 01/03/2020 12:10:34 Past Encounters Encounter ID Performer Location Encounter Start Date Encounter Closed Date Diagnosis/Indication Diagnosis SNOMED-CT Code Diagnosis ICD10 Code Diagnosis Note [id number] Bhaskar Fisher [facility] [address],[place] [address] 12/09/2018 11:16:33 12/09/2018 12:38:33 Left flank pain 263298739 R10.9 resolving believe this was from his trip Orchitis a nd epididymitis 191053172 N45.3 Stress 09169976 Z73.3 Disorder o f vitamin B12 494883770 E53.8 [id number] Bhaskar Fisher [facility] [address] [facility],[place] [address] 01/04/2019 15:47:34 01/04/2019 16:56:34 Painful rectal bleeding 823198280 K62.5 will need to have a colonsocop y given his LLQ abd pain as well as its response to the cipro ?divertic? Hemorrhoids 14858590 K64 .9 treated with anusol [id number] Bhaskar Fisher [facility] [address] [facility],[place] [address] 05/26/2019 09:08:33 05/26/2019 10:15:01 Inguinal pain 507750482 R10.2 is going to move [employer] and will let us know Multiple n odules of lung 144906450 R91.8 reassuranc e and will have a repeat ct exam Adult heal th examination 219590810 Z00.00 [id number] Bhaskar Fisher [facility] Medicine [address] [facility],[place] [address] 01/03/2020 11:49:36 01/03/2020 12:34:12 Pain of left testicle 2519486720 7868525 N50.812 pain in left testicle must r/o signif testicular path first [id number] Bhaskar Fisher [facility] [address] [facility],[place] [address] 02/21/2021 14:46:11 02/21/2021 15:44:00 Left lower quadrant pain 312946181 R10.32 Anemia 494324356 D64.9 Low back pain 468860568 M54.5 [id number] Bhaskar Fisher [facility] Medicine [address] [facility],[place] [address] 03/25/2021 10:28:00 03/25/2021 11:26:13 Pain in right knee 3626807442 94991 M25.561 needs XR of the knee, concern for possible tissue tear needs fu work up Rupture of tendon of biceps 863231320 M66.821 following with NEOS [id number] Bhaskar Fisher [facility] Medicine [address] [facility],[place] [address] 06/16/2022 15:26:41 06/17/2022 08:14:32 COVID-19 546967047 U07.1 [id number] Bhaskar Fisher [facility] Medicine [address] [facility],[place] [address] 07/09/2023 15:02:05 07/09/2023 16:12:04 Gastroesophageal reflux disease 411928541 K21.9 quiet Diverticul itis of sigmoid colon 834598340 K57.32 Multiple n odules of lung 396086494 R91.8 reassuranc e and will have a repeat ct exam we will catch this on his ct orderd Fatigue 18476446 R53.83 willneed to chk lab et Anxiety 40120830 F41.9 [id number] Bhaskar Fisher DO [facility] [address],[place] [address] 12/27/2024 16:07:11 12/29/2024 08:02:59 Renewal of prescription 494326717 Z76.0 done Depression screening 171 185954 Z13.31 SCREENING NEGATIVE Cough 42666098 R05.9 ct ordered Fatigue 75148856 R53.83 will need to chk lab et Gastroesop hageal reflux disease 695695941 K21.9 quiet Multiple n odules of lung 169669813 R91.8 reassuranc e and will have a repeat ct exam we will catch this on his ct orderd Anxiety 18130463 F41.9 Health Concerns Section Related Observation LastModified by Organization Detai ls LastModified Time None Recorded Concern Status LastModified by Organization Details LastModified Time None Recorded Advance Directives Directive None Recorded Payers Encounter Date Sequence Insurance Name Policy Number Policy Hutchins Covered Member ID Hutchins Member ID Guarantor Name 02/21/2021 1 [place] [facility] [id number] Segun Mckeon [id number] Segun Mckeon 03/25/2021 1 [place] [facility] [id number] Segun Mckeon [id number] Segun Mckeon 06/16/2022 1 [place] [facility] [id number] Segun Mckeon [id number] Segun Mckeon 07/09/2023 1 [place] [facility] [id number] Segun Mckeon [id number] Segun Mckeon 12/27/2024 1 [place] [facility] [id number] Segun Mckeon [id number] Segun Mike Mike Notes Date Note Type Note Provider Name [...] diaphoresis no diarrhea Bhaskar Fisher DO [address] [place], [address], [facility] 02/21/2021 15:12:53 1 text/html accident/poison [...] on his right side THOMAS NELSON [address] [place], [address], [facility] 03/25/2021 10:55:25 2 text/html patient is evaluated via tele/video assessment per patient consentduring current pandemiconset of covid today hit hard like a freight trainhome covid test positiveheadache , fever to 101 , sore throat , aches Bhaskar Fisher DO [address] [place], [address], [facility] 06/16/2022 16:24:32 3 text/html here for rechk and is overall ok except for the probwith the diverticit is becoming a major problem in that it is recurring and he is having severe pain in d=sigmoid area and having abdom distentionno vomiting sl nauseadoes feel feverish Bhaskar Fisher DO [address] [place], [address], [facility] 07/09/2023 16:09:30 5 text/html here for rechkrelates that he has been ok but having a great deal of fatigue Bhaskar Fisher DO [address] [place], [address], [facility] 12/27/2024 16:50:01
[2025-03-15 16:43] LABS: Testosterone, Total 337 ng/dL (250-1100)
== END 2025-03-09 09:32 | disposition home or self-care (01) ==
LOC: HO.MANLDS 09:31
PROVIDERS: Visit Provider Internal Medicine
DX: R89.1 Abnormal level of hormones in specimens from other organs, systems and tissues (principal)
CPT/HCPCS: 36415; 84403

== ENCOUNTER 2025-03-16 15:39 | Outpatient (REF) | payer BC, SELFPAY ==
--- NOTE | ~2025-03-16 | CT_ITS ---
CLINICAL HISTORY: MULTIPLE PULMONARY NODULES CT chest without contrast Comparison: None Findings: The heart size is normal. The visualized thyroid and mediastinum are unremarkable. 3 mm perifissural nodule is noted in the right lower lobe best seen on image number 92 of series number 5. Tiny subpleural nodule left lower lobe best seen on image number 5 mm nodule lingular segment best seen on image number 118. Calcified 2-3 mm nodule right upper lobe best seen on image number 32 3 mm perifissural nodule right middle lobe best seen on image number 65. The upper abdomen is unremarkable. No acute fractures. IMPRESSION: 1. Multiple likely benign 3-5 mm nodules as above. If the patient is at high-risk please obtain a follow-up examination in 12 months. If the patient is at low risk no further follow-up is recommended. This document has been electronically signed by: Trevin De Dios MD on 03/20/2025 11:57:35
--- OUTSIDE RECORDS SUMMARY | 2025-03-16 15:41 | XMS_ITS | Data Portability ---
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 Follow up [place] [id number] [place] [address] (HAND SEWER) MDM HIGH MUST MEET 2 OUT OF [...] Lab testostero ne, total, serum 2024 025 [facility], [address] [place] [address], [address], 5 12:27:55 vitamin B12 + folate, serum or blood 2024 025 [facility], [address] [place] [address], [address], 5 13:28:04 vitamin D, 25-hydroxy , total, serum 2024 025 [facility], [address] [place] [address], [address], 5 11:40:57 CBC w/ auto diff 2024 025 [facility], [address] [place] [address], [address], 5 16:43:23 TSH + T4, serum 2024 025 [facility], [address] [place] [address], [address], 5 16:43:23 CMP, serum or plasma 2024 025 [facility], [address] [place] [address], [address], 5 16:43:23 iron + TIBC + ferritin, serum 2024 025 [facility], [address] [place] [address], [address], 5 16:43:23 lyme disease igg+igm, serum, reflex western blot 2024 025 [email or web address] [facility], [address] [place] [address], [address], 5 16:41:00 CBC w/ auto diff 2022 023 [facility], [address] [place] [address], [address], 3 11:31:10 CMP, serum or plasma 2022 023 [facility], [address] [place] [address], [address], 3 11:31:09 ESR (erythrocy te sedimentat ion rate), blood 2022 023 [facility], [address] [place] [address], [address], 3 16:10:44 testostero ne, total, serum 2022 023 [facility], [address] [place] [address], [address], 3 12:31:57 vitamin B12 + folate, serum or blood 2022 023 [facility], [address] [place] [address], [address], 3 11:31:10 vitamin B12 + folate, serum or blood 2020 021 [facility], [address] [place] [address], [address], 11:57:26 iron + TIBC + ferritin, serum 2020 021 [facility], [address] [place] [address], [address], 11:57:26 CMP, serum or plasma 2020 021 [...] w/o contrast - Not Required Procedure codes: 13450Hmpy Reference #: [id number] 9Resolutio n: Completed on 01/02/2025 at 12:33 pm. Call ref #[id number] 39. 2024 025 [facility], [address] [place], [address], 5 08:17:15 XR, knee, 3 view 2020 [facility], [address] [place], [address], 1 08:41:56 XR, lumbosacra l spine, 2 or 3 view 2020 021 [facility], [address] [place], [address], 1 09:45:10 CT, abdomen + pelvis, w/ contrast 2020 021 [facility], [address] [place], [address], 1 09:45:09 Medication Orders lorazepam 0.5 mg [...] By Organization Details Last Modified Time 02/21/2021 [id number] back care and preventing injuries: care instructions Not available 02/21/2021 15:08:30 getting back to normal after low back pain: care instructions Not available 02/21/2021 15:08:30 learning about relief for back pain Not available 02/21/2021 15:08:30 abdominal pain: care instructions Not available 02/21/2021 15:03:52 07/09/2023 [id number] gastroesophageal reflux disease (GERD): care instructions Not available 07/09/2023 16:04:10 12/27/2024 [id number] cough: care instructions Not available 12/27/2024 16:30:09 gastroesophageal reflux disease (GERD): care instructions Not available 12/27/2024 16:35:58 Reason for Referral None Reported. Results Created Date Observation Date Name Description Value Unit Range Abnormal Flag Note LastModifiedBy Organization Detail LastModifiedTime 03/25/2003/25/2021 XR, knee No observ ation record ed. [email or web address] [facility] [address] [place], [address], 04/09/2021 08:09:19 04/29/20 21 04/29/2021 MRI, knee, w/o contr ast No observ ation record ed. [email or web address] [facility] (Mri) [address] [place], [address], 04/30/2021 08:59:42 09/23/20 23 09/15/2023 CT, abdom en + pelvi s, w/wo contr ast No observ ation record ed. [facility] (Medical Records) [address] [place], [address], 09/26/2023 21:45:49 04/15/20 24 04/15/2024 XR, wrist No observ ation record ed. [email or web address] [facility] (Medical Records) [address] [place], [address], 04/17/2024 08:29:41 Result Notes None recorded. Problems Name Problem SNOMED Code Status Onset Date Resolution Date Notes Provider Name and Address Organization Details Recorded Time Maxillary sinusitis 03178658 Active 2018 Right Christi alcantar [facility] 5 08:51:14 Gastroeso phageal reflux disease 294073209 Active 2018 Christi alcantar [facility] 5 08:51:06 Tendiniti s 01471610 Active 2018 R great toe Christi alcantar [facility] 5 08:51:14 Disorder of vitamin B12 348600452 Active 2018 Christisharon alcantar [facility] 5 08:51:14 Peptic ulcer 40104944 Active 2018 Christi alcantar [facility] 5 08:51:14 Multiple nodules of lung 972042671 Active 2018 Matilda alcantar [facility] 0 12:10:29 COVID-19 298193642 Active 2021 Christi alcantar [facility] 5 08:51:13 Diverticu litis 613607567 Active 2022 Bhaskar Fisher, DO [address] [facility], [place], [address], [facility] 3 16:32:37 Diverticu litis of sigmoid colon 345171449 Active 2022 Christisharon alcantar [facility] 5 08:51:06 Solitary nodule of lung 118886020 Active 2022 Christi Roy null, [facility] 5 08:51:06 Fatigue 58072609 Active 2022 Christisharon Roy null, [facility] 5 08:51:06 Anxiety 95886756 Active 2022 Christisharon Roy null, [facility] 5 08:51:06 Computed tomograph y result abnormal 993599475 Active 2022 Christi Roy null, [facility] 5 08:51:13 Left lower quadrant pain 603491864 Active 2022 Christisharon Roy null, [facility] 5 08:51:13 Cough 25767020 Active 2024 Bhaskar Fisher DO [address] [place] [address], [address], [facility] 5 16:29:27 Hypotesto steronism 003953080763 4 Active 2024 Bhaskar Fisher DO [address] [place] [address], [address], [facility] 5 14:41:36 Problem Notes None recorded. Procedures Surgical History Date Name Laterality Status Provider Name and Address Organization Details Recorded Time 03/14/20 19 Colonoscopy completed Bhaskar Fisher DO [address] [place] [address], [phone], [facility] 03/17/2019 06:49:50 Imaging Results Imaging Date Name Status LastModified by Organiz ation Details LastModified Time 03/25/2021 XR, knee completed [facility] [address] [place], [address], 04/09/2021 08:09:19 04/29/2021 MRI, knee, w/o contrast completed [email or web address] (Mri) [address] [place], [address], 04/30/2021 08:59:42 09/15/2023 CT, abdomen + pelvis, w/wo contrast completed [facility] (Medical Records) [address] [place], [address], 09/26/2023 21:45:49 04/15/2024 XR, wrist completed [email or web address] [facility] (Medical Records) [address] [place], [address], 04/17/2024 08:29:41 Procedure Notes None recorded. Medical Equipment None Reported. Allergies Allergen ID Allergen Name Allergen Category Reaction Reaction Severity Criticality Documentation Date Start Date Code Code System Note Provider Name and Address Organization Details Recorded Time 2809 Compazine medicatio n Not available Not available Not available 12/09/201860065 6 RxNorm Humera alcantar [place] - [facility] 9 09:21:03 Medications Name [...] 100 mg tablet TAKE 1 TABLET DAILY. 2024 active Not Available Not Available Not Avai lable Anucort-HC 25 mg suppository Insert 1 supposito [...] Address Organization Details Last Updated DateTime 1 748664. 8 g 32.9 kg/m2 180.34 cm 92 /min 98 % 98 % 116 mm[Hg] 70 mm[Hg] Bhaskar Fisher, DO [address] [place], [address], [place] 1 14:50:09 Date Recorded Body height Body mass index (BMI) Body weight Heart rate Oxygen saturation Oxygen saturation in Arterial blood by Pulse oximetry Systolic blood pressure Diastolic blood pressure Provider Name and Address Organization Details Last Updated DateTime 1 180.34 cm 32.9 kg/m2 160420. 8 g 91 /min 98 % 98 % 120 mm[Hg] 70 mm[Hg] Humera Gil [facility] 1 10:34:04 Date Recorded Body weight Heart rate Oxygen saturation Oxygen saturation in Arterial blood by Pulse oximetry Systolic blood pressure Diastolic blood pressure Provider Name and Address Organization Details Last Updated DateTime 3 869898. 43 g 82 /min 98 % 98 % 135 mm[Hg] 65 mm[Hg] Pamela Conley [facility] 3 15:12:53 Date Recorded Body height Body mass index (BMI) Body weight Heart rate Oxygen saturation Oxygen saturation in Arterial blood by Pulse oximetry Systolic blood pressure Diastolic blood pressure Provider Name and Address Organization Details Last Updated DateTime 5 180.34 cm 33.2 kg/m2 989298. 42 g 79 /min 96 % 96 % 122 mm[Hg] 72 mm[Hg] Christi Roy [facility] 5 16:21:47 Social [...] zoster recombinant 5 completed Bhaskar Fisher DO [address] [place] [address], [address], [facility] 11/25/2024 18:38:14 zoster recombinant 5 completed Kimo alcantar [facility] 02/02/2025 14:52:21 Influenza, split virus, quadrivalent, preservative 8 completed Matilda alcantar [facility] 01/03/2020 12:10:34 Tdap 9 completed Matilda alcantar [facility] 01/03/2020 12:10:34 Influenza, split virus, quadrivalent, preservative 9 jose enrique Matildadaniel alcantar [facility] 01/03/2020 12:10:34 Past Encounters Encounter ID Performer Location Encounter Start Date Encounter Closed Date Diagnosis/Indication Diagnosis SNOMED-CT Code Diagnosis ICD10 Code Diagnosis Note [id number] Bhaskar Fisher [facility] [address],[place] [address] 12/09/2018 11:16:33 12/09/2018 12:38:33 Left flank pain 360443885 R10.9 resolving believe this was from his trip Orchitis a nd epididymitis 818956352 N45.3 Stress 40062564 Z73.3 Disorder o f vitamin B12 262884596 E53.8 [id number] Bhaskar Fisher [facility] [address] [facility],[place] [address] 01/04/2019 15:47:34 01/04/2019 16:56:34 Painful rectal bleeding 255729157 K62.5 will need to have a colonsocop y given his LLQ abd pain as well as its response to the cipro ?divertic? Hemorrhoids 21110187 K64 .9 treated with anusol [id number] Bhaskar Fisher [facility] [address] [facility] [facility],[place] [address] 05/26/2019 09:08:33 05/26/2019 10:15:01 Inguinal pain 262761089 R10.2 is going to move [employer] and will let us know Multiple n odules of lung 097175539 R91.8 reassuranc e and will have a repeat ct exam Adult heal th examination 826166102 Z00.00 [id number] Bhaskar Fisher [facility] [address] [facility] [facility],[place] [address] 01/03/2020 11:49:36 01/03/2020 12:34:12 Pain of left testicle 0320721456 4620455 N50.812 pain in left testicle must r/o signif testicular path first [id number] Bhaskar Fisher [facility] [address] [facility] [facility],[place] [address] 02/21/2021 14:46:11 02/21/2021 15:44:00 Left lower quadrant pain 482336946 R10.32 Anemia 823061103 D64.9 Low back pain 248254705 M54.5 [id number] Bhaskar Fisher [facility] [address] [place] [address],[place] [address] 03/25/2021 10:28:00 03/25/2021 11:26:13 Pain in right knee 3183184755 20440 M25.561 needs XR of the knee, concern for possible tissue tear needs fu work up Rupture of tendon of biceps 287819850 M66.821 following with NEOS [id number] Bhaskar Fisher [facility] [address] [facility],[place] [address] 06/16/2022 15:26:41 06/17/2022 08:14:32 COVID-19 151344876 U07.1 [id number] Bhaskar Fisher [facility] [address] [facility] [facility],[place] [address] 07/09/2023 15:02:05 07/09/2023 16:12:04 Gastroesophageal reflux disease 032785577 K21.9 quiet Diverticul itis of sigmoid colon 729064716 K57.32 Multiple n odules of lung 963612086 R91.8 reassuranc e and will have a repeat ct exam we will catch this on his ct orderd Fatigue 49039971 R53.83 willneed to chk lab et Anxiety 53127947 F41.9 [id number] Bhaskar Fisher DO [facility] [address] [facility] [address] [facility] [address],[place] [address] 12/27/2024 16:07:11 12/29/2024 08:02:59 Renewal of prescription 857374444 Z76.0 done Depression screening 171 821524 Z13.31 SCREENING NEGATIVE Cough 50546306 R05.9 ct ordered Fatigue 85002453 R53.83 will need to chk lab et Gastroesop hageal reflux disease 673841800 K21.9 quiet Multiple n odules of lung 308676187 R91.8 reassuranc e and will have a repeat ct exam we will catch this on his ct orderd Anxiety 86030850 F41.9 Health Concerns Section Related Observation LastModified by Organization Detai ls LastModified Time None Recorded Concern Status LastModified by Organization Details LastModified Time None Recorded Advance Directives Directive None Recorded Payers Encounter Date Sequence Insurance Name Policy Number Policy Hutchins Covered Member ID Hutchins Member ID Guarantor Name 02/21/2021 1 [place] [facility] [place] [id number] Segun Mckeon [id number] Segun Mckeon 03/25/2021 1 [place] [facility] [place] [id number] Segun Mckeon [id number] Segun Mckeon 06/16/2022 1 [place] [facility] ([facility] [id number] Segun Mckeon [id number] Segun Mckeon 07/09/2023 1 [place] [facility] [place] [id number] Segun Mckeon [id number] Segun Mckeon 12/27/2024 1 [place] [facility] ([facility] [id number] Segun Mckeon [id number] Segun Mckeon Notes Date Note Type [...] nocturnal diaphoresis no diarrhea Bhaskar Fisher, [address] [place], [address], [facility] 02/21/2021 15:12:53 1 text/html [...] on his right side THOMAS NELSON [address] [place], [address], [facility] 03/25/2021 10:55:25 2 text/html patient is evaluated via tele/video assessment per patient consentduring current pandemiconset of covid today hit hard like a freight trainhome covid test positiveheadache , fever to 101 , sore throat , aches Bhaskar Fisher DO [address] [place], [address], [facility] 06/16/2022 16:24:32 3 text/html here for rechk and is overall ok except for the probwith the diverticit is becoming a major problem in that it is recurring and he is having severe pain in d=sigmoid area and having abdom distentionno vomiting sl nauseadoes feel feverish Bhaskar Fisher DO [address] [facility], [place], [address], [facility] 07/09/2023 16:09:30 5 text/html here for rechkrelates that he has been ok but having a great deal of fatigue Bhaskar Fisher DO [address] [facility], [place], [address], [facility] 12/27/2024 16:50:01
== END 2025-03-16 15:40 | disposition home or self-care (01) ==
LOC: HO.CT 15:39
PROVIDERS: PCP Internal Medicine; Visit Provider Internal Medicine
DX: R91.8 Other nonspecific abnormal finding of lung field (principal)
CPT/HCPCS: 71250

== ENCOUNTER → 2025-03-16 15:51 | Outpatient (BNV) | payer BC, SELFPAY | PROVIDERS: PCP Internal Medicine; Visit Provider Radiology Diagnostic Radiology | DX: R91.8 Other nonspecific abnormal finding of lung field (principal) | CPT/HCPCS: 71250 ==

== ENCOUNTER 2025-03-27 09:06 | Outpatient (REF) | payer BC, SELFPAY ==
--- OUTSIDE RECORDS SUMMARY | 2025-03-27 09:55 | XMS_ITS | Data Portability ---
Author Organization [facility] Address [address] [place] [address] Care Team Providers Care Bowling Alley Refinisher Name Role Phone KUNAL STEINER Press Assistant And Feeder [phone] Assessment Encounter Date Assessment Date Assessment LastModified by Organization Details LastModified Time 02/21/2021 02/21/2021 [address] [place] [address] (SUBACUTE NURSE) MDM MODERATE MUST MEET 2 OUT OF [...] COVERED Not available 02/21/2021 15:04:07 06/16/2022 06/16/2022 [address] [place] [address] (SUBACUTE NURSE) : MDM LOW MUST MEET 2 OF [...] COVERED Not available 06/16/2022 16:09:25 07/09/2023 07/09/2023 [address] [place] [address] (SUBACUTE NURSE) MDM MODERATE MUST MEET 2 OUT OF [...] expressed understanding. Follow up as [place]. [address] [place] [address] (SUBACUTE NURSE) MDM HIGH MUST MEET 2 OUT OF [...] Lab testostero ne, total, serum 2024 025 [facility], [address] [place] [address], [address], 5 12:27:55 vitamin B12 + folate, serum or blood 2024 025 [facility], [address] [place] [address], [address], 5 13:28:04 vitamin D, 25-hydroxy , total, serum 2024 025 [facility], [address] [place] [address], [address], 5 11:40:57 CBC w/ auto diff 2024 025 [facility], [address] [place] [address], [address], 5 16:43:23 TSH + T4, serum 2024 025 [facility], [address] [place] [address], [address], 5 16:43:23 CMP, serum or plasma 2024 025 [facility], [address] [place] [address], [address], 5 16:43:23 iron + TIBC + ferritin, serum 2024 025 [facility], [address] [place] [address], [address], 5 16:43:23 lyme disease igg+igm, serum, reflex western blot 2024 025 [email or web address] [facility], [address] [place] [address], [address], 5 16:41:00 CBC w/ auto diff 2022 023 [facility], [address] [place] [address], [address], 3 11:31:10 CMP, serum or plasma 2022 023 [facility], [address] [place] [address], [address], 3 11:31:09 ESR (erythrocy te sedimentat ion rate), blood 2022 023 [facility], [address] [place] [address], [address], 3 16:10:44 testostero ne, total, serum 2022 023 [facility], [address] [place] [address], [address], 3 12:31:57 vitamin B12 + folate, serum or blood 2022 023 [facility], [address] [place] [address], [address], 3 11:31:10 vitamin B12 + folate, serum or blood 2020 021 [facility], [address] [place] [address], [address], 11:57:26 iron + TIBC + ferritin, serum 2020 021 [facility], [address] [place] [address], [address], 11:57:26 CMP, serum or plasma 2020 021 [...] w/o contrast - Not Required Procedure codes: 66393Iqcd Reference #: [id number] 9Resolutio n: Completed on 01/02/2025 at 12:33 pm. Call ref #[id number] 39. 2024 025 [facility], [address] [place], [address], 5 08:17:15 XR, knee, 3 view 2020 [facility], [address] [place], [address], 1 08:41:56 XR, lumbosacra l spine, 2 or 3 view 2020 021 [facility], [address] [place], [address], 1 09:45:10 CT, abdomen + pelvis, w/ contrast 2020 021 [facility], [address] [place], [address], 1 09:45:09 Medication Orders lorazepam 0.5 mg [...] By Organization Details Last Modified Time 02/21/2021 [id number] back care and preventing injuries: care instructions Not available 02/21/2021 15:08:30 getting back to normal after low back pain: care instructions Not available 02/21/2021 15:08:30 learning about relief for back pain Not available 02/21/2021 15:08:30 abdominal pain: care instructions Not available 02/21/2021 15:03:52 07/09/2023 [id number] gastroesophageal reflux disease (GERD): care instructions Not available 07/09/2023 16:04:10 12/27/2024 [id number] cough: care instructions Not available 12/27/2024 16:30:09 gastroesophageal reflux disease (GERD): care instructions Not available 12/27/2024 16:35:58 Reason for Referral None Reported. Results Created Date Observation Date Name Description Value Unit Range Abnormal Flag Note LastModifiedBy Organization Detail LastModifiedTime 03/25/2003/25/2021 XR, knee No observ ation record ed. [email or web address] [facility] [address] [place], [address], 04/09/2021 08:09:19 04/29/20 21 04/29/2021 MRI, knee, w/o contr ast No observ ation record ed. [email or web address] [facility] (Mri) [address] [place], [address], 04/30/2021 08:59:42 09/23/20 23 09/15/2023 CT, abdom en + pelvi s, w/wo contr ast No observ ation record ed. [facility] (Medical Records) [address] [place], [address], 09/26/2023 21:45:49 04/15/20 24 04/15/2024 XR, wrist No observ ation record ed. [email or web address] [facility] (Medical Records) [address] [place], [address], 04/17/2024 08:29:41 03/20/20 25 03/16/2025 CT, chest , w/o contr ast No observ ation record ed. [facility] (Medical Records) [address] [place], [address], 03/22/2025 21:42:50 Result Notes None recorded. Problems Name Problem SNOMED Code Status Onset Date Resolution Date Notes Provider Name and Address Organization Details Recorded Time Maxillary sinusitis 65134932 Active 2018 Right Christi alcantar [facility] 5 08:51:14 Gastroeso phageal reflux disease 194305429 Active 2018 Christi alcantar [facility] 5 08:51:06 Tendiniti s 07309139 Active 2018 R great toe Christi alcantar [facility] 5 08:51:14 Disorder of vitamin B12 657828288 Active 2018 Christi alcantar [facility] 5 08:51:14 Peptic ulcer 68602522 Active 2018 Christi alcantar [facility] 5 08:51:14 Multiple nodules of lung 198428051 Active 2018 Matilda alcantar [facility] 0 12:10:29 COVID-19 216643962 Active 2021 Christi alcantar [facility] 5 08:51:13 Diverticu litis 056272602 Active 2022 Bhaskar Fisher, DO [address] [place] [address], [address], [facility] 3 16:32:37 Diverticu litis of sigmoid colon 950987487 Active 2022 Christi Kirill null, [facility] 5 08:51:06 Solitary nodule of lung 008209445 Active 2022 Christi Roy null, [facility] 5 08:51:06 Fatigue 25158308 Active 2022 Christi Kirill null, [facility] 5 08:51:06 Anxiety 05937742 Active 2022 Christi Kirill null, [facility] 5 08:51:06 Computed tomograph y result abnormal 970396070 Active 2022 Christisharon Roy null, [facility] 5 08:51:13 Left lower quadrant pain 548946182 Active 2022 Christisharon Roy null, [facility] 5 08:51:13 Cough 93080931 Active 2024 Bhaskar Fisher DO [address] [place] [address], [address], [facility] 5 16:29:27 Hypotesto steronism 801442336671 4 Active 2024 Bhaskar Fisher DO [address] [place] [address], [address], [facility] 5 14:41:36 Problem Notes None recorded. Procedures Surgical History Date Name Laterality Status Provider Name and Address Organization Details Recorded Time 03/14/20 19 Colonoscopy completed Bhaskar Fisher DO [address] [place] [address], [address], [facility] 03/17/2019 06:49:50 Imaging Results None recorded. Procedure Notes None recorded. Medical Equipment None Reported. Allergies Allergen ID Allergen Name Allergen Category Reaction Reaction Severity Criticality Documentation Date Start Date Code Code System Note Provider Name and Address Organization Details Recorded Time 5224 Compazine medicatio n Not available Not available Not available 12/09/2018 53448 6 RxNorm Humera Gil [facility] 9 09:21:03 Medications [...] Updated DateTime 5 180.34 cm 33.2 kg/m2 438936. 42 g 79 /min 96 % 96 % 122 mm[Hg] 72 mm[Hg] [facility] 5 16:21:47 Date Recorded Body weight Body mass index (BMI) Body height Heart rate Oxygen saturation Oxygen saturation in Arterial blood by Pulse oximetry Systolic blood pressure Diastolic blood pressure Provider Name and Address Organization Details Last Updated DateTime 1 501773. 8 g 32.9 kg/m2 180.34 cm 92 /min 98 % 98 % 116 mm[Hg] 70 mm[Hg] Bhaskar Fisher, DO [address] [place], [address], [facility] 1 14:50:09 Date Recorded Body height Body mass index (BMI) Body weight Heart rate Oxygen saturation Oxygen saturation in Arterial blood by Pulse oximetry Systolic blood pressure Diastolic blood pressure Provider Name and Address Organization Details Last Updated DateTime 1 180.34 cm 32.9 kg/m2 282586. 8 g 91 /min 98 % 98 % 120 mm[Hg] 70 mm[Hg] Humera Gil [facility] 1 10:34:04 Date Recorded Body weight Heart rate Oxygen saturation Oxygen saturation in Arterial blood by Pulse oximetry Systolic blood pressure Diastolic blood pressure Provider Name and Address Organization Details Last Updated DateTime 3 982862. 43 g 82 /min 98 % 98 % 135 mm[Hg] 65 mm[Hg] Pamela Conley [facility] 3 15:12:53 Social History Question Answer Notes LastModified by [...] Recorded Time zoster recombinant 5 completed Bhaskar Fisher, [address] [place], [address], [facility], [place] 11/25/2024 18:38:14 zoster recombinant 5 completed Kimo alcantar [facility] 02/02/2025 14:52:21 Influenza, split virus, quadrivalent, preservative 8 completed Matilda alcantar [facility] 01/03/2020 12:10:34 Tdap 9 completed Matilda alcantar [facility] 01/03/2020 12:10:34 Influenza, split virus, quadrivalent, preservative 9 completed Matilda alcantar [facility] 01/03/2020 12:10:34 Past Encounters Encounter ID Performer Location Encounter Start Date Encounter Closed Date Diagnosis/Indication Diagnosis SNOMED-CT Code Diagnosis ICD10 Code Diagnosis Note [id number] Bhaskar Fisher [facility] Internal [address] [address] 12/09/2018 11:16:33 12/09/2018 12:38:33 Left flank pain 015443337 R10.9 resolving believe this was from his trip Orchitis a nd epididymitis 104367301 N45.3 Stress 66083050 Z73.3 Disorder o f vitamin B12 778246197 E53.8 [id number] Bhaskar Fisher [address], [place] [address] 01/04/2019 15:47:34 01/04/2019 16:56:34 Painful rectal bleeding 813717708 K62.5 will need to have a colonsocop y given his LLQ abd pain as well as its response to the cipro ?divertic? Hemorrhoids 30628806 K64 .9 treated with anusol [id number] Bhaskar Fisher [address], [place] [address] 05/26/2019 09:08:33 05/26/2019 10:15:01 Inguinal pain 251888734 R10.2 is going to move duty belt and will let us know Multiple n odules of lung 686074023 R91.8 reassuranc e and will have a repeat ct exam Adult heal th examination 595298869 Z00.00 [id number] Bhaskar Fisher [facility] Internal [address],[place] [address] 01/03/2020 11:49:36 01/03/2020 12:34:12 Pain of left testicle 1848248860 8448857 N50.812 pain in left testicle must r/o signif testicular path first [id number] Bhaskar Catrina Fisher [facility] Medicine [address] [facility] [address], [place] [address] 02/21/2021 14:46:11 02/21/2021 15:44:00 Left lower quadrant pain 814319732 R10.32 Anemia 243850940 D64.9 Low back pain 454048467 M54.5 [id number] Bhaskar Fritz Phillip [facility] Medicine [address] [facility], [place] [address] 03/25/2021 10:28:00 03/25/2021 11:26:13 Pain in right knee 5470409618 21488 M25.561 needs XR of the knee, concern for possible tissue tear needs fu work up Rupture of tendon of biceps 198356633 M66.821 following with NEOS [id number] Bhaskar Catrina Fisher [facility] [address], [place] [address] 06/16/2022 15:26:41 06/17/2022 08:14:32 COVID-19 505755007 U07.1 [id number] Bhaskar Fritz Phillip [facility] [address] [facility], [place] [address] 07/09/2023 15:02:05 07/09/2023 16:12:04 Gastroesophageal reflux disease 892272810 K21.9 quiet Diverticul itis of sigmoid colon 635058885 K57.32 Multiple n odules of lung 747196896 R91.8 reassuranc e and will have a repeat ct exam we will catch this on his ct orderd Fatigue 09424943 R53.83 [facility] lab et Anxiety 41104949 F41.9 [id number] Bhaskar Catrina Fisher [facility] Medicine [address] [facility], [place] [address] 12/27/2024 16:07:11 12/29/2024 08:02:59 Renewal of prescription 287664985 Z76.0 done Depression screening 171 537207 Z13.31 SCREENING NEGATIVE Cough 14992569 R05.9 ct ordered Fatigue 37507525 R53.83 will need to chk lab et Gastroesop hageal reflux disease 291580116 K21.9 quiet Multiple n odules of lung 133993498 R91.8 reassuranc e and will have a repeat ct exam we will catch this on his ct orderd Anxiety 08812700 F41.9 Health Concerns Section Related Observation LastModified by Organization Detai ls LastModified Time None Recorded Concern Status LastModified by Organization Details LastModified Time None Recorded Advance Directives Directive None Recorded Payers Encounter Date Sequence Insurance Name Policy Number Policy Hutchins Covered Member ID Hutchins Member ID Guarantor Name 02/21/2021 1 [place] [facility] (O) [id number] Segun Mckeon [id number] Segun Mckeon 03/25/2021 1 [place]) [id number] Segun Mckeon [id number] Segun Mckeon 06/16/2022 1 [place] [employer] [place] [id number] Segun Mckeon [id number] Segun Mckeon 07/09/2023 1 [place] [id number] Segun Mckeon [id number] Segun Mckeon 12/27/2024 1 [place] [employer] [place]) [id number] Segun Mckeon [id number] Segun Mckeon Notes Date Note Type [...] some nocturnal diaphoresis no diarrhea Bhaskar Fisher, DO [address] [facility], [place], [address], [facility] 02/21/2021 15:12:53 1 text/html accident/poison [...] on his right side THOMAS NELSON [address] [place], [address], [facility], [place] 03/25/2021 10:55:25 2 text/html patient is evaluated via tele/video assessment per patient consentduring current pandemiconset of covid today hit hard like a freight trainhome covid test positiveheadache , fever to 101 , sore throat , aches Bhaskar Fisher DO [address] [place], [address], [facility], [place] 06/16/2022 16:24:32 3 text/html here for rechk and is overall ok except for the probwith the diverticit is becoming a major problem in that it is recurring and he is having severe pain in d=sigmoid area and having abdom distentionno vomiting sl nauseadoes feel feverish Bhaskar Fisher DO [address] [place], [address], [facility], [place] 07/09/2023 16:09:30 5 text/html here for rechkrelates that he has been ok but having a great deal of fatigue Bhaskar Fisher DO [address] [place], [address], [facility] 12/27/2024 16:50:01
[2025-04-01 16:09] LABS: Testosterone, Total 201 ng/dL (250-1100)
== END 2025-03-27 09:07 | disposition home or self-care (01) ==
LOC: HO.MANLDS 09:06
PROVIDERS: Visit Provider Internal Medicine
DX: R89.1 Abnormal level of hormones in specimens from other organs, systems and tissues (principal)
CPT/HCPCS: 36415; 84403

== ENCOUNTER 2025-09-14 09:30 | Outpatient (REF) | payer BC, SELFPAY ==
--- OUTSIDE RECORDS SUMMARY | 2025-09-14 10:02 | XMS_ITS | Encounter Summary ---
Author Organization [facility] Address [address] [facility] [address] [place] [address] Phone Care Team Providers Care Absence Management Consultant Name Role Phone Phillip Bhaskar Shah DO Primary Care Provider [phone] Bhaskar Fisher DO Unavailable Encounter Details Date Type Department Care Team (Late st Contact Info) Description 12/28/2018 Ancillary Orders Virtual Department [address] [place] [address] Bhaskar Fisher DO [address] [place] [address] [email or web address] Abdominal pain, unspecified abdominal location; Left flank pain Social History Tobacco Use Types Packs/Day Years Used Date Smoking Tobacco: Never Assessed Sex and Gender Information Value Date Recorded Sex Assigned at Not on file Legal Sex Male 9:32 PM EDT Gender Identity Not on file Sexual Orientation Not on file documented as of this encounter Plan of Treatment Not on file documented as of this encounter Visit Diagnoses Diagnosis Abdominal pain, unspecified abdominal location Left flank pain Abdominal pain, unspecified site documented in this encounter Care Teams Absence Management Consultant Relationship Specialty Start Date End Date Bhaskar Fisher DO PCP - General 08/09/17 Bhaskar Fisher DO [address] [place] [address] (work) [email or web address] Insurance Assigned Provider 01/29/24 documented as of this encounter Additional Source Comments The information contained in this document represents components of the legal health record. It is not the complete legal health record.[facility]
--- OUTSIDE RECORDS SUMMARY | 2025-09-14 10:02 | XMS_ITS | Encounter Summary ---
Author Organization [facility] Address [address] [facility] [address] [place] [address] Phone Care Team Providers Care Floral Designer Name Role Phone Bhaskar Fisher DO Primary Care Provider [phone] Bhaskar Fisher DO Unavailable Encounter Details Date Type Department Care Team (Late st Contact Info) Description 03/08/2024 Procedure Pass [facility] Admitting Dept Virtual Department [address] [place] [address] Social History Tobacco Use Types Packs/Day Years Used Date Smoking Tobacco: Former Cigarettes Smokeless Tobacco: Never Alcohol Use Standard Drinks/Week Comments Yes 0 (1 standard drink = 0.6 oz pur e alcohol) 2-3 glasses wine/day Education Answer Date Recorded Are you interested in more education? Not on frankie e 02/19/2023 Are you concerned about learning? Not on file 02/19/2023 No 02/19/2023 No 02/19/2023 Digital Access Answer Date Recorded No 03/20/2023 No 03/20/2023 Reliable internet access at home? Not on file 03/20/2023 Device with a working camera? Not on file Intimate Partner Violence Answer Date R ecorded Are you denied basic needs s uch as food, clothing, or medical care? No 03/08/2024 In the past 12 months have y ou been in a relationship with a person who hurts, threatens, or tries to control you? No 03/08/2024 Are you denied basic needs s uch as food, clothing, or medical care? No 03/08/2024 In the past 12 months have y ou been in a relationship with a person who hurts, threatens, or tries to control you? No 03/08/2024 Sex and Gender Information Value Date Recorded Sex Assigned at Not on file Legal Sex Male 9:32 PM EDT Gender Identity Not on file Sexual Orientation Not on file documented as of this encounter Plan of Treatment Not on file documented as of this encounter Visit Diagnoses Not on filedocumented in this encounter Care Teams Floral Designer Relationship Specialty Start Date End Date Bhaskar Fisher DO PCP - General 08/09/17 Bhaskar Fisher DO [address] [place] [address] [email or web address] Insurance Assigned Provider 01/29/24 documented as of this encounter Additional Source Comments The information contained in this document represents components of the legal health record. It is not the complete legal health record.[facility]
--- OUTSIDE RECORDS SUMMARY | 2025-09-14 10:02 | XMS_ITS | Encounter Summary ---
Author Organization [facility] Address [address] [facility] [address] [place] [address] Phone Care Team Providers Care Tire Servicer Name Role Phone Bhaskar Fisher DO Primary Care Provider [phone] Bhaskar Fisher DO Unavailable Encounter Details Date Type Department Care Team (Late st Contact Info) Description 02/21/2021 Transcribe Orders Virtual Department [address] [place] [address] Bhaskar Fisher DO [address] [facility] [address] [place] [address] Low back pain, unspecified back pain laterality, unspecified chronicity, unspecified whether sciatica present (Primary Dx) Social History Tobacco Use Types Packs/Day Years Used Date Smoking Tobacco: Former Smokeless Tobacco: Never Alcohol Use Standard Drinks/Week Comments Yes 0 (1 standard drink = 0.6 oz pur e alcohol) 2-3 glasses wine/day Sex and Gender Information Value Date Recorded Sex Assigned at Not on file Legal Sex Male 9:32 PM EDT Gender Identity Not on file Sexual Orientation Not on file documented as of this encounter Plan of Treatment Not on file documented as of this encounter Visit Diagnoses Diagnosis Low back pain, unspecified back pain laterality, unspecified chronicity, unspecified whether sciatica present- Primary documented in this encounter Care Teams Tire Servicer Relationship Specialty Start Date End Date Bhaskar Fisher DO [email or web address] PCP - General 08/09/17 Bhaskar Fisher DO [address] [place] [address] [email or web address] Insurance Assigned Provider 01/29/24 documented as of this encounter Additional Source Comments The information contained in this document represents components of the legal health record. It is not the complete legal health record.[facility]
--- OUTSIDE RECORDS SUMMARY | 2025-09-14 10:02 | XMS_ITS | Encounter Summary ---
Author Organization [facility] Address [address] [facility] [address] [place] [address] Phone Care Team Providers Care Liturgical Music Director Name Role Phone Bhaskar Fisher DO Primary Care Provider [phone] Bhaskar Fisher DO Unavailable Encounter Details Date Type Department Care Team ([facility] st Contact Info) Description 02/21/2021 Transcribe Orders Virtual Department [address] [place] [address] Bhaskar Fisher DO [address] [place] [address] [place] [address] [email or web address] LLQ pain (Primary Dx) Social History Tobacco Use Types [...] as of this encounter Visit Diagnoses Diagnosis LLQ pain- Primary Abdominal pain, left lower quadrant documented in this encounter Care Teams Liturgical Music Director Relationship Specialty Start Date End Date Bhaskar Fisher DO [email or web address] PCP - General 08/09/17 Bhaskar Fisher DO [address] [place] [address] [email or web address] Insurance Assigned Provider 01/29/24 documented as of this encounter Additional Source Comments The information contained in this document represents components of the legal health record. It is not the complete legal health record.[facility]
--- OUTSIDE RECORDS SUMMARY | 2025-09-14 10:02 | XMS_ITS | Encounter Summary ---
Author Organization [facility] Address [address] [place] [address] Phone Care Team Providers Care County Director Name Role Phone Sommerdaxa Bhaskar Shah DO Primary Care Provider [phone] Bhaskar Fisher DO Unavailable Encounter Details Date Type Department Care Team ([facility] st Contact Info) Description 08/31/2023 Transcribe Orders Virtual Department [address] [place] [address] Bhaskar Fisher DO [address] [facility] [address] [place] [address] [place] [address] [email or web address] Diverticulitis of large intestine without perforation or abscess without bleeding (Primary Dx) Social History Tobacco Use Types [...] with a working camera? Not on file Sex and Gender Information Value Date Recorded Sex Assigned at Not on file Legal Sex Male 9:32 PM EDT Gender Identity Not on file Sexual Orientation Not on file documented as of this encounter Plan of Treatment Not on file documented as of this encounter Visit Diagnoses Diagnosis Diverticulitis of large intestine without perforation or abscess without bleeding- Primary documented in this encounter Care Teams County Director Relationship Specialty Start Date End Date Bhaskar Fisher DO [email or web address] PCP - General 08/09/17 Bhaskar Fisher DO [address] [place] [id number] [email or web address] Insurance Assigned Provider 01/29/24 documented as of this encounter Additional Source Comments The information contained in this document represents components of the legal health record. It is not the complete legal health record.[facility]
--- OUTSIDE RECORDS SUMMARY | 2025-09-14 10:03 | XMS_ITS | Encounter Summary ---
Author Organization [facility] Address [address] [address] Phone Care Team Providers Care Pattern Scratcher Name Role Phone Bhaskar Fisher DO Primary Care Provider [phone] Bhaskar Fisher DO Unavailable Encounter Details Date Type Department Care Team (Late st Contact Info) Description 03/14/2019 Procedure Pass [facility] Endoscopy Admitting Dept Virtual Department [address] [place] [id number] Social History Tobacco Use Types Packs/Day Years [...] on filedocumented in this encounter Care Teams Pattern Scratcher Relationship Specialty Start Date End Date Bhaskar Fisher DO PCP - General 08/09/17 Bhaskar Fisher DO [address] [place] [id number] Insurance Assigned Provider 01/29/24 documented as of this encounter Additional Source Comments The information contained in this document represents components of the legal health record. It is not the complete legal health record.[facility]
--- OUTSIDE RECORDS SUMMARY | 2025-09-14 10:03 | XMS_ITS | Clinical Summary ---
Author Organization [facility] Address [address] [place] [address] Phone Care Team Providers Care Alliance Manager Name Role Phone Frank Zhang DO Primary Care Provider [phone] Frank Zhang DO Unavailable Allergies Active Allergy Reactions Criticality Noted Date Comments Prochlorperazine Other (See Comments) Medium 9 Musculoskeletal cramping Medications sertraline (ZOLOFT) 100 MG tablet 1 1/2 tablet 06/13/2010 Active cholecalciferol (VITAMIN D3) 2,000 unit tablet Take 1,000 Units by mouth daily. Active bacillus coagulans-inulin 1 billion-250 cell-mg Cap Take 250 mg by mouth daily. Active buPROPion (WELLBUTRIN XL) 150 MG ER 24 hr tablet 03/19/2021 Active Active Problems Problem Noted Date Diagnosed Date Multiple nodules of lung 05/26/2019 Disorder of vitamin B12 12/09/2018 Gastroesophageal reflux disease 12/09/2018 Peptic ulcer 12/09/2018 Immunizations Immunization Administration Dates Next Due COVID-19 (Pre-08/16) Moderna Vaccine, mRNA, PF 0 12/12/2020,11/06/2020 Influenza Quadrivalent MDCK Preservative Free IM 08/10/2019 Influenza Quadrivalent Preservative Free IM 07/26 Influenza Quadrivalent w/ Preservative IM 2017 Tdap 03/15/2019 Social History Tobacco Use Types Packs/Day Years [...] on file Sexual Orientation Not on file Last Filed Vital Signs Vital Sign Reading Time Taken Comments Blood Pressure 124/82 03/08/2024 9:33 AM EDT Pulse 69 03/08/2024 9:33 AM EDT Temperature 35.9 C (96.6 F) 03/08/2024 9:20 AM EDT Respiratory Rate 16 03/08/2024 9:33 AM EDT Oxygen Saturation 97% 03/08/2024 9:33 AM EDT Inhaled Oxygen Concentration - - Weight 104.3 kg (230 lb) 03/24/2021 9:24 AM EDT Height 180.3 cm (5' 11 ) 03/24/2021 9:24 AM EDT Body Mass Index 32.08 03/24/2021 9:24 AM EDT Plan of Treatment Health Maintenance Due Date Last Done Comments LIPID PANEL 1972 DEPRESSION SCREENING 1984 SMOKING Hx and SMOKELESS TOBACCO SCREENING 1985 HIV ONE-TIME SCREENING (18-65 YEARS) 1990 COLOGUARD 2017 FIT TEST 2017 FOBT 2017 SIGMOIDOSCOPY 2017 VIRTUAL COLONOSCOPY 2017 PNEUMOCOCCAL VACCINES (50+ years) (1 of 1 - PCV) 2022 ZOSTER VACCINES (1 of 2) 2022 INFLUENZA VACCINE (#1) 2025 3, 08/25/2022, 08/10/2019, Additional history exists COVID-19 VACCINE ( season) 2025 10/06/2021, 12/12/2020, 11/06/2020 COLONOSCOPY 03/08/2027 03/08/2024, 03/14/2019 COLORECTAL CANCER SCREENING 03/08/2027 Adult Td,Tdap Booster 03/15/2029 03/15/2019 RSV VACCINE (1 - 1-dose 75+ series) 2047 HEPATITIS C SCREENING Completed 12/09/2018 HEPATITIS A VACCINES Aged Out No long er eligible based on patient's age to complete this topic HIB VACCINES Aged Out No longer eligi ble based on patient's age to complete this topic MENINGOCOCCAL VACCINES (ACWY) Aged Out No longer eligible based on patient's age to complete this topic MENINGOCOCCAL VACCINES (B) Aged Out N o longer eligible based on patient's age to complete this topic Medical Devices Implanted Type Area Vice President Business Development Device Identifier Shelf Expiration Date Model / Serial / Lot Button Right: Arm Metal Nate Right Arm Procedures Procedure Name Priority Date/Time Associated Diagnosis Comments ENDOSCOPY, COLON 03/08/2024 8:46 AM EDT from Last 3 Months or Most Recently Relevant to Health Maintenance Results * ENDOSCOPY, COLON (03/08/2024 8:46 AM EDT) Narrative Transcriptions Melita Siu MD - 03/08/2024 8:46 AM EDT [facility] Patient Name: Segun Mckeon Attending MD:: MELITA SIU MD, Procedure Date: 03/08/2024 8:46 AM Date of : 1970 Age: 53 Admit Type: Outpatient Gender: Male Room: [facility] 02 Referring MD: FRANK ZHANG DO Exam Type: Colonoscopy Indications: Surveillance: Personal history of adenomatouspolyps on last colonoscopy > 5 years ago Medications: Monitored Anesthesia Care Procedure: Informed consent was obtained from the patientafter discussion of the indications, limitations, alternatives, benefits, and risks of the procedure. Risks specifically discussed include but are not limited to medication reactions, missed lesions, bleeding, perforation, or the need for emergent surgery. Throughout the procedure, the patient's blood pressure, pulse, end-tidal CO2, and oxygensaturations were monitored continuously. The Olympus adult variable colonoscope [id number] #1 was introduced through the anus and advanced to the terminal ileum, with identification of theappendiceal orifice and IC valve. The colonoscopy was performed without difficulty. The patient tolerated the procedure fairly well. The quality of the bowel preparation was good. The terminal ileum, ileocecal valve, appendiceal orifice, and rectum were photographed. Complications: No immediate complications. Estimated blood loss: Minimal. Findings: The perianal and digital rectal examinations were normal. Pertinent negatives include normalsphincter tone. A 5 mm polyp was found in the sigmoid colon at 25cm proximal to the anus. The polyp was sessile. Thepolyp was removed with a cold snare. Resection andretrieval were complete. Estimated blood loss was minimal. A 7 mm polyp was found at 55 cm proximal to theanus. The polyp was sessile. The polyp was removed with a cold snare. Resection and retrieval were complete. Estimated blood loss was minimal. An 11 mm polyp was found at 50 cm proximal to the anus. The polyp was semi-sessile. The polyp was removed with a cold snare. Resection and retrieval were complete. Estimated blood loss was minimal. Retroflexion in the right colon was performed. Non-bleeding internal hemorrhoids were found during retroflexion. The hemorrhoids were moderate. The exam was otherwise without abnormality ondirect and retroflexion views. Impression: - One 5 mm polyp in the sigmoid colon at 25 cm proximal to the anus, removed with a cold snare. Resected and retrieved. - One 7 mm polyp at 55 cm proximal to the anus, removed with a cold snare. Resected andretrieved. - One 11 mm polyp at 50 cm proximal to the anus, removed with a cold snare. Resected andretrieved. - The examination was otherwise normal on directand retroflexion views. Recommendation: - I will send results of your biopsy to you andyour referring physician or provider. If you do notreceive notification within 3 weeks, please call ouroffice. - Repeat colonoscopy in 3 - 5 years forsurveillance of multiple polyps. MELITA SIU MD 03/08/2024 9:22:58 AM This report has been signed electronically. Number of Addenda: 0 Note Initiated On: 03/08/2024 8:46 AM Procedure Code(s): --- Professional --- 47539, Colonoscopy, flexible; with removal of tumor(s), polyp(s), or other lesion(s) by snare technique --- Technical --- 64193, Colonoscopy, flexible; with removal of tumor(s), polyp(s), or other lesion(s) by snare technique Diagnosis Code(s): --- Professional --- Z86.010, Personal history of colonic polyps D12.5, Benign neoplasm of sigmoid colon --- Technical --- Z86.010, Personal history of colonic polyps D12.5, Benign neoplasm of sigmoid colon CPT copyright 2021 [employer] [place] [employer]. All rights reserved. The codes documented in this report are preliminary and upon technology manager reviewmay be revised to meet current compliance requirements. Procedure Date: 03/08/2024 8:46:[address] [place] [id number] Frank Zhang DO GI PROCEDURE ORDERABLES Final Re sult from Last 3 Months or Most Recently Relevant to Health Maintenance [place] [address] [place] [address] [place] [address] [place] [address] [employer] Care Teams Alliance Manager Relationship Specialty Start Date End Date Frank Zhang DO PCP - General 08/09/17 Frank Zhang DO [address] [place] [address] Insurance Assigned Provider 01/29/24 Additional Source Comments The information contained in this document represents components of the legal health record. It is not the complete legal health record.[facility]
--- OUTSIDE RECORDS SUMMARY | 2025-09-14 10:03 | XMS_ITS | Encounter Summary ---
Author Organization [facility] Address [address] [place] [address] Phone Care Team Providers Care Developer Architect Name Role Phone Bhaskar Fisher Primary Care Provider [phone] Bhaskar Fisher Unavailable Reason for Referral * MRI/CAT Scan - Closed Specialty Diagnoses / Procedures Referred By Jag hernandez Referred To Contact Radiology Diagnoses LLQ pain Procedures CT Abdomen/Pelvis Leigh Perales PA Phone: tel: fax: Referral ID Status Reason Start Date Expiration Date Visits Re quested Visits Authorized [id number] Closed 05/16/2019 05/15/2020 1 1 Encounter Details Date Type Department Care Team (Latest Contact Info) Description 05/16/2019 Transcribe Orders Virtual Department [address] [place] [address] Leigh Perales PA [address] [place] [address] LLQ pain (Primary Dx) Social History Tobacco [...] on file documented as of this encounter Results * CT ABDOMEN/PELVIS WITH CONTRAST (05/22/2019 9:40 AM EDT) Anatomical Region Laterality Modality Abdomen, Pelvis Computed Tomogra phy 05/22/2019 9:43 AM EDT Impressions 05/22/2019 9:56 AM EDT 1. No evidence of diverticulitis. No findings to account for the patient's symptoms. 2. Sub-5 mm right middle lobe and left lower lobe pulmonary nodules. Follow up CT in twelve months per Fleischner guidelines if the patient has risk factors. 3. Additional findings as above. TOTAL CTDIvol: 10.2 mGy POS - [id number] Narrative 05/22/2019 9:56 AM EDT COMPARISON: None. TECHNIQUE: CT abdomen and pelvis with IV and oral contrast. Multiplanar reformatted images generated. Automated exposure control utilized. CT ABDOMEN AND PELVIS FINDINGS: Lung bases/heart: Image heart is normal. Minimal right lower lobe dependent atelectasis. There are 1 to 2 mm subpleural nodules in the right middle lobe and left lower lobe. Spleen: Normal. Liver: Normal. Gallbladder/biliary tree: Normal. Pancreas: Normal. Adrenal glands: Normal. Vasculature: No AAA or acute findings. Genitourinary: Kidneys, bladder and prostate are within normal limits. Gastrointestinal tract: Stomach and small bowel are normal.: As within normal limits. No evidence of colonic diverticulosis or diverticulitis. Peritoneum/retroperitoneum: No lymphadenopathy, ascites or fluid collections. Musculoskeletal: Small umbilical hernia. Mild L4-5 and L5-S1 facet arthropathy. Mild T9 superior endplate depression due to a degenerative Schmorl's node. No compression fractures. Mild bilateral hip and SI joint arthritis. No bone lesions. Procedure Note Hansa Hopper MD - 05/22/2019 COMPARISON: None. TECHNIQUE: CT abdomen and pelvis with IV and oral contrast. Multiplanarreformatted images generated. Automated exposure control utilized. CT ABDOMEN AND PELVIS FINDINGS: Lung bases/heart: Image heart is normal. Minimal right lower lobedependent atelectasis. There are 1 to 2 mm subpleural nodules in theright middle lobe and left lower lobe. Spleen: Normal. Liver: Normal. Gallbladder/biliary tree: Normal. Pancreas: Normal. Adrenal glands: Normal. Vasculature: No AAA or acute findings. Genitourinary: Kidneys, bladder and prostate are within normal limits. Gastrointestinal tract: Stomach and small bowel are normal.: As withinnormal limits. No evidence of colonic diverticulosis or diverticulitis. Peritoneum/retroperitoneum: No lymphadenopathy, ascites or fluidcollections. Musculoskeletal: Small umbilical hernia. Mild L4-5 and L5-S1 facetarthropathy. Mild T9 superior endplate depression due to a degenerativeSchmorl's node. No compression fractures. Mild bilateral hip and SIjoint arthritis. No bone lesions. IMPRESSION: 1. No evidence of diverticulitis. No findings to account for thepatient's symptoms. 2. Sub-5 mm right middle lobe and left lower lobe pulmonary nodules.Follow up CT in twelve months per Fleischner guidelines if the patient hasrisk factors. 3. Additional findings as above. TOTAL CTDIvol: 10.2 mGy POS - [id number] Leigh GUZMAN IMG CT ABD/PELVIS Final Res ult documented in this encounter Visit Diagnoses Diagnosis LLQ pain- Primary Abdominal pain, left lower quadrant LLQ pain Abdominal pain, left lower quadrant documented in this encounter Care Teams Developer Architect Relationship Specialty Start Date End Date Bhaskar Fisher DO PCP - General 08/09/17 Bhaskar Fisher DO [address] [place] [address] Insurance Assigned Provider 01/29/24 documented as of this encounter Additional Source Comments The information contained in this document represents components of the legal health record. It is not the complete legal health record.[facility]
--- OUTSIDE RECORDS SUMMARY | 2025-09-14 10:03 | XMS_ITS | Data Portability ---
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 Follow up as [place]. 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) MDM HIGH MUST MEET 2 OUT OF [...] testostero ne, total, serum 2024 025 [facility], [address] [place] [address], [address], 5 12:27:55 vitamin B12 + folate, serum or blood 2024 025 [facility], [address] [place] [address], [address], 13:28:04 vitamin D, 25-hydroxy , total, serum 2024 025 [facility], [address] [place] [address], [address], 11:40:57 CBC w/ auto diff 2024 025 [facility], [address] [place] [address], [address], 16:43:23 TSH + T4, serum 2024 025 [facility], [address] [place] [address], [address], 16:43:23 CMP, serum or plasma 2024 025 [facility], [address] [place] [address], [address], 16:43:23 iron + TIBC + ferritin, serum 2024 025 [facility], [address] [place] [address], [address], 16:43:23 lyme disease igg+igm, serum, reflex western blot 2024 025 [email or web address] [facility], [address] [place] [address], [address], 5 16:41:00 CBC w/ auto diff 2022 023 [facility], [address] [place] [address], [address], 3 11:31:10 CMP, serum or plasma 2022 023 [facility], [address] [place] [address], [address], 3 11:31:09 ESR (erythrocy te sedimentat ion rate), blood 2022 023 [facility], [address] [place] [address], [address], 3 16:10:44 testostero ne, total, serum 2022 023 [facility], [address] [place] [address], [address], 3 12:31:57 vitamin B12 + folate, serum or blood 2022 023 [facility], [address] [place] [address], [address], 3 11:31:10 vitamin B12 + folate, serum or blood 2020 021 [facility], [address] [place] [address], [address], 1 11:57:26 iron + TIBC + ferritin, serum 2020 021 [facility], [address] [place] [address], [address], 1 11:57:26 CMP, serum or plasma 2020 [...] w/o contrast - Not Required Procedure codes: 04445 Call Reference #: [id number] Resolution : Completed on 01/02/2025 at 12:33 pm. Call ref #[id number] 39. 2024 025 [facility], [address] [place], [address], 5 08:17:15 XR, knee, 3 view 2020 [facility], [address] [place], [address], 1 08:41:56 XR, lumbosacra l spine, 2 or 3 view 2020 [facility], [address] [place], [address], 1 09:45:10 CT, abdomen + pelvis, w/ contrast 2020 021 [facility], [address] [place], [address], 1 09:45:09 Medication Orders lorazepam 0.5 mg tablet 2024 025 ANTOINETTE Not available 5 16:40:19 amoxicilli n 875 mg-potassi um clavulanat e 125 mg tablet 2022 023 [email or web address] Not available 4 11:04:20 lorazepam 0.5 mg tablet 2022 023 ANTOINETTE Not available 3 16:09:17 Medrol (Chinedu) 4 mg tablets in a dose pack 2021 022 [email or web address] Not available 3 15:08:17 azithromyc in 250 mg tablet 2021 022 [email or web address] Not available 15:07:12 Patient TargetsNo targets recorded. Patient Instructions Encounter Date Encounter Id Patient Instructions Last Modified By Organization Details Last Modified Time 02/21/2021 [id number] back care and preventing injuries: care instructions Not available 02/21/2021 15:08:30 getting back to normal after low back pain: care instructions Not available 02/21/2021 15:08:30 learning about relief for back pain Not available 02/21/2021 15:08:30 abdominal pain: care instructions Not available 02/21/2021 15:03:52 07/09/2023 [id number] gastroesophageal reflux disease (GERD): care instructions Not available 07/09/2023 16:04:10 12/27/2024 [id number] cough: care instructions Not available 12/27/2024 16:30:09 gastroesophageal reflux disease (GERD): care instructions Not available 12/27/2024 16:35:58 Reason for Referral None Reported. Results Created Date Observation Date Name Description Value Unit Range Abnormal Flag Note LastModifiedBy Organization Detail LastModifiedTime 03/25/2003/25/2021 XR, knee No observ ation record ed. [email or web address] [facility] [address] [place], [address], 04/09/2021 08:09:19 04/29/20 21 04/29/2021 MRI, knee, w/o contr ast No observ ation record ed. [email or web address] [facility] (Mri) [address] [place], [address], 04/30/2021 08:59:42 09/23/20 23 09/15/2023 CT, abdom en + pelvi s, w/wo contr ast No observ ation record ed. [facility] (Medical Records) [address] [place], [address], 09/26/2023 21:45:49 04/15/20 24 04/15/2024 XR, wrist No observ ation record ed. [email or web address] [facility] (Medical Records) [address] [place], [address], 04/17/2024 08:29:41 03/20/20 25 03/16/2025 CT, chest , w/o contr ast No observ ation record ed. [facility] (Medical Records) [address] [place], [address], 03/22/2025 21:42:50 Result Notes None recorded. Problems Name Problem SNOMED Code Status Onset Date Resolution Date Notes Provider Name and Address Organization Details Recorded Time Maxillary sinusitis 33652908 Active 2018 Right Christi alcantar [facility] 5 08:51:14 Gastroeso phageal reflux disease 545375330 Active 2018 Christi alcantar [facility] 5 08:51:06 Tendiniti s 98345464 Active 2018 R great toe Christi alcantar [facility] 5 08:51:14 Disorder of vitamin B12 465235751 Active 2018 Christi alcantar [facility] 5 08:51:14 Peptic ulcer 82948056 Active 2018 Christi alcantar [facility] 5 08:51:14 Multiple nodules of lung 212313077 Active 2018 Matilda alcantar [facility] 0 12:10:29 COVID-19 180072087 Active 2021 Christi alcantar [facility] 5 08:51:13 Diverticu litis 569826027 Active 2022 Bhaskar Fisher, [address], [address], [facility] 3 16:32:37 Diverticu litis of sigmoid colon 999525162 Active 2022 Christi Roy null, [facility] 5 08:51:06 Solitary nodule of lung 872086276 Active 2022 Christi Roy null, [facility] 5 08:51:06 Fatigue 20482679 Active 2022 Bhaskar Catrina Fisher [address], [address], [facility] 5 13:39:12 Anxiety 49619412 Active 2022 Christisharon Roy null, [facility] 5 08:51:06 Computed tomograph y result abnormal 621574324 Active 2022 Christi Roy null, [facility] 5 08:51:13 Left lower quadrant pain 479198424 Active 2022 Christisharon Roy [facility], [facility] 5 08:51:13 Cough 03061392 Active 2024 Bhaskar Fisher [address], [address], [facility] 5 16:29:27 Hypotesto steronism 479003335447 4 Active 2024 Bhaskar Fisher [address], [address], [facility] 5 13:38:54 Problem Notes None recorded. Procedures Surgical History Date Name Laterality Status Provider Name and Address Organization Details Recorded Time 03/14/20 19 Colonoscopy completed Bhaskar Catrina Fisher [address], [address], [facility] 03/17/2019 06:49:50 Imaging Results None recorded. Procedure Notes None recorded. Medical Equipment None Reported. Allergies Allergen ID Allergen Name Allergen Category Reaction Reaction Severity Criticality Documentation Date Start Date Code Code System Note Provider Name and Address Organization Details Recorded Time 2803 Compazine medicatio n Not available Not available Not available 12/09/201805985 6 RxNorm Humera alcantar [place] [facility] 9 09:21:03 Medications Name Sig [...] sertraline 100 mg tablet TAKE 1 TABLET DAILY active Not Available [...] transdermal gel packet APPLY THE CONTENTS OF 2 PACKET DAILY 2024 active Not Available Not Available Not [...] 50 mg/5 gram (1 %) transdermal gel APPLY 2 PACKETS TOPICALLY EVERY DAY active Not Available Not Available No t Available GaviLyte-G 236 gram-22.74 gram-6.74 gram-5.86 gram oral solution 05/26 completed Not Available Not Available Not Available Readi-Cat 2 2 % (w/v) oral suspension TAKE 450 ML BY ORAL ROUTE DIRECTED FOR 1 DAY. 10/21 completed Not Available Not Available Not Available Afluria Quad 1059-9166 (PF) 60 mcg (15 mcg x 4)/0.5 mL IM syringe 12/09 completed Not Available Not Available Not Available Flucelvax Quad (PF) 60 mcg (15 mcg x 4)/0.5 mL IM syringe 02/21 completed Not Available Not Available Not Available Vitals Date Recorded Body height Body mass index (BMI) Body weight Heart rate Oxygen saturation Systolic And Diastolic Provider Name and Address Organization Details Last Updated DateTime 5 180.34 cm 33.2 kg/m2 880658. 42 g 79 /min 96 % 122/72 mm[Hg] [facility] 5 16:21:47 Date Recorded Body weight Body mass index (BMI) Body height Heart rate Oxygen saturation Systolic And Diastolic Provider Name and Address Organization Details Last Updated DateTime 1 019491. 8 g 32.9 kg/m2 180.34 cm 92 /min 98 % 116/70 mm[Hg] Bhaskar Fisher, DO [address] [place], [address], [facility] 1 14:50:09 Date Recorded Body height Body mass index (BMI) Body weight Heart rate Oxygen saturation Systolic And Diastolic Provider Name and Address Organization Details Last Updated DateTime 1 180.34 cm 32.9 kg/m2 731951. 8 g 91 /min 98 % 120/70 mm[Hg] Humera Gil [facility] 1 10:34:04 Date Recorded Body weight Heart rate Oxygen saturation Systolic And Diastolic Provider Name and Address Organization Details Last Updated DateTime 07/09/2023 467078.43 g 82 /min 98 % 135/65 mm[Hg] Pamela Conley [facility] 07/09/2023 15:12:53 Social History Question Answer Notes LastModified by Organizat ion Details LastModified Time Tobacco Smoking Status Never Smoker Not Available [facility] 08/27/2020 03:36:23 What Was The Date Of Your Most Recent Tobacco Screening? 12/27/2024 [email or web address] Information not available 12/27/2024 Sex: Unknown Functional Status None recorded. Mental Status None recorded. Family History Nothing Reported. Medical History No medical history recorded. Immunizations Vaccine Type Date Status Note Provider Nam e and Address Organization Details Recorded Time zoster recombinant 5 completed Bhaskar Fisher, DO [address] [place], [address], [facility] 11/25/2024 18:38:14 zoster recombinant 5 completed Kimo alcantar, [facility] 02/02/2025 14:52:21 Influenza, split virus, quadrivalent, preservative 8 completed Matilda alcantar [facility] 01/03/2020 12:10:34 Tdap 9 completed Matilda alcantar [facility] 01/03/2020 12:10:34 Influenza, split virus, quadrivalent, preservative 9 completed Matilda alcantar [place] [facility] 01/03/2020 12:10:34 Past Encounters Encounter ID Performer Location Encounter Start Date Encounter Closed Date Diagnosis/Indication Diagnosis SNOMED-CT Code Diagnosis ICD10 Code Diagnosis IMO Codes Diagnosis Note [id number] Bhaskar Catrina Fisher [address], [place] [address] 12/09/2018 11:16:33 12/09/2018 12:38:33 Left flank pain 372545455 R10.9 resolving believe this was from his trip Orchitis a nd epididymitis 411151825 N45.3 Stress 67302543 Z73.3 Disorder o f vitamin B12 517338940 E53.8 [id number] Bhaskar Fisher [address],[place] [address] 01/04/2019 15:47:34 01/04/2019 16:56:34 Painful rectal bleeding 602067214 K62.5 will need to have a colonsocop y given his LLQ abd pain as well as its response to the cipro ?divertic? Hemorrhoids 95989102 K64 .9 treated with anusol [id number] Bhaskar Fisher [address],[place] [address] 05/26/2019 09:08:33 05/26/2019 10:15:01 Inguinal pain 071098418 R10.2 is going to move [employer] and will let us know Multiple n odules of lung 993006283 R91.8 reassuranc e and will have a repeat ct exam Adult [facility] th examination 129032143 Z00.00 [id number] Bhaskar Fisher [facility] [address], [place] [address] 01/03/2020 11:49:36 01/03/2020 12:34:12 Pain of left testicle 2894371269 9386177 N50.812 pain in left testicle must r/o signif testicular path first [id number] Bhaskar Fisher [facility] [address], [place] [address] 02/21/2021 14:46:11 02/21/2021 15:44:00 Left lower quadrant pain 889879968 R10.32 Anemia 827039582 D64.9 Low back pain 720303801 M54.5 [id number] Bhaskar Fisher [facility] [address],[place] [address] 03/25/2021 10:28:00 03/25/2021 11:26:13 Pain in right knee 3329325677 26707 M25.561 needs XR of the knee, concern for possible tissue tear needs fu work up Rupture of tendon of biceps 963307940 M66.821 following with [facility] [id number] Bhaskar Fisher [address],[place] [address] 06/16/2022 15:26:41 06/17/2022 08:14:32 COVID-19 310451427 U07.1 [id number] Bhaskar Fisher [address],[place] [address] 07/09/2023 15:02:05 07/09/2023 16:12:04 Gastroesophageal reflux disease 431865807 K21.9 quiet Diverticul itis of sigmoid colon 655497396 K57.32 Multiple n odules of lung 635535016 R91.8 reassuranc e and will have a repeat ct exam we will catch this on his ct orderd Fatigue 33327629 R53.83 willneed to chk lab et Anxiety 39204906 F41.9 [id number] Bhaskar Fisher [address],[place] [address] 12/27/2024 16:07:11 12/29/2024 08:02:59 Renewal of prescription 294780471 Z76.0 done Depression screening 171 178723 Z13.31 SCREENING NEGATIVE Cough 05345623 R05.9 ct ordered Fatigue 95088356 R53.83 will need to chk lab et Gastroesop hageal reflux disease 324582730 K21.9 quiet Multiple n odules of lung 061076151 R91.8 reassuranc e and will have a repeat ct exam we will catch this on his ct orderd Anxiety 51283794 F41.9 Health Concerns Section Related Observation LastModified by Organization Detaleisha ls LastModified Time None Recorded Concern Status LastModified by Organization Details LastModified Time None Recorded Advance Directives Directive None Recorded Payers Insurance Date Sequence Insurance Name Policy Number Policy Hutchins Covered Member ID Hutchins Member ID Guarantor Name 12/27/2024 1 [facility] [place] [facility] [id number] Segun Mike [id number] Segun Mckeon 03/26/2021 [employer] Segun Mckeon Notes Date Note Type Note Provider Name a nd Address Organization Details Recorded Time 1 text/html ROS as noted in the HPI here for rechk and states had covid [...] diaphoresis no diarrhea Bhaskar Fisher, DO [address] [facility], [place], [address], [facility] 02/21/2021 15:12:53 1 text/html ROS as noted in the HPI accident/poison arturo/right knee pain the patient reports [...] on his right side THOMAS NELSON [address] [place], [address], [facility] 03/25/2021 10:55:25 2 text/html ROS as noted in the HPI patient is evaluated via tele/video assessment per patient consentduring current pandemiconset of covid today hit hard like a [facility] covid test positiveheadache , fever to 101 , sore throat , aches Bhaskar Fisher DO [address] [place], [address], [facility] 06/16/2022 16:24:32 3 text/html ROS as noted in the HPI here for rechk and is overall ok except for the probwith the diverticit is becoming a major problem in that it is recurring and he is having severe pain in d=sigmoid area and having abdom distentionno vomiting sl nauseadoes feel feverish Bhaskar Fisher DO [address] [place], [address], [facility] 07/09/2023 16:09:30 5 text/html ROS as noted in the HPI here for rechkrelates that he has been ok but having a great deal of fatigue Bhaskar Fisher DO [address] [place] [address], [address], [facility] 12/27/2024 16:50:01
--- OUTSIDE RECORDS SUMMARY | 2025-09-14 10:03 | XMS_ITS | Encounter Summary ---
Author Organization [facility] Address [address] [place] [address] Phone Care Team Providers Care Front Office Help Name Role Phone Bhaskar Fisher DO Primary Care Provider [phone] Bhaskar Fisher DO Unavailable Encounter Details Date Type Department Care Team (Late st Contact Info) Description 01/03/2020 Transcribe Orders Virtual Department [address] [place] [address] Bhaskar Fisher DO [address] [facility] [place] [address] [email or web address] Left testicular pain (Primary Dx) Social History Tobacco Use [...] as of this encounter Visit Diagnoses Diagnosis Left testicular pain- Primary documented in this encounter Care Teams Front Office Help Relationship Specialty Start Date End Date Bhaskar Fisher DO PCP - General 08/09/17 Bhaskar Fisher DO [address] [place] [address] [email or web address] Insurance Assigned Provider 01/29/24 documented as of this encounter Additional Source Comments The information contained in this document represents components of the legal health record. It is not the complete legal health record.[facility]
[2025-09-14 14:33] LABS: Alanine Aminotransferase 48 U/L (0-40); Albumin Level 4.5 g/dL (3.5-5.0); Alkaline Phosphatase 126 U/L (39-117); Anion Gap 7 (12-20); Aspartate Amino Transferase 36 U/L (5-37); Blood Urea Nitrogen 13 mg/dL (9-16); Calcium 9.1 mg/dL (8.4-10.2); Carbon Dioxide 28 mmol/L (22-29); Chloride 108 mmol/L (96-108); Estimated Glomerular Filt Rate > 60; Potassium 4.2 mmol/L (3.3-5.1); Sodium 139 mmol/L (135-145); Total Protein 7.1 g/dL (6.5-8.0)
[2025-09-14 15:19] LABS: Folate 8.4 ng/mL (> or = 4.0); Vitamin B12 259 pg/mL (200-900)
== END 2025-09-14 09:31 | disposition home or self-care (01) ==
LOC: HO.MANLDS 09:30
PROVIDERS: Visit Provider Internal Medicine
DX: R89.1 Abnormal level of hormones in specimens from other organs, systems and tissues (principal); R53.82 Chronic fatigue, unspecified
CPT/HCPCS: 36415; 80053; 82607; 82746; 84403

== ENCOUNTER 2025-10-15 09:35 | Outpatient (REF) | payer BC, SELFPAY ==
--- OUTSIDE RECORDS SUMMARY | 2025-10-15 10:57 | XMS_ITS | Encounter Summary ---
Author Organization [facility] Address [address] [place] [address] Phone Care Team Providers Care Relay Engineer Name Role Phone Bhaskar Fisher DO Primary Care Provider [phone] Bhaskar Fisher DO Unavailable Encounter Details Date Type Department Care Team ([facility] st Contact Info) Description 02/21/2021 Transcribe Orders Virtual Department [address] [place] [address] Bhaskar Fisher DO [address] [facility] [place] [address] [place] [address] [email or web address] LLQ pain (Primary Dx) Social History Tobacco [...] quadrant documented in this encounter Care Teams Relay Engineer Relationship Specialty Start Date End Date Bhaskar Fisher DO PCP - General 08/09/17 Bhaskar Fisher DO [address] [place] [address] [email or web address] Insurance Assigned Provider 01/29/24 documented as of this encounter Additional Source Comments The information contained in this document represents components of the legal health record. It is not the complete legal health record.[facility]
--- OUTSIDE RECORDS SUMMARY | 2025-10-15 10:57 | XMS_ITS | Encounter Summary ---
Author Organization [facility] Address [address] [place] [address] Phone Care Team Providers Care Oncology Navigator Name Role Phone Bhaskar Fisher DO Primary Care Provider [phone] Bhaskar Fisher DO Unavailable Encounter Details Date Type Department Care Team (Late st Contact Info) Description 01/03/2020 Transcribe Orders Virtual Department [address] [place] [address] Bhaskar Fisher DO [address] [facility] [place] [address] [email or web address] Left testicular pain (Primary Dx) Social History [...] Primary documented in this encounter Care Teams Oncology Navigator Relationship Specialty Start Date End Date Bhaskar Fisher DO [email or web address] PCP - General 08/09/17 Bhaskar Fisher DO [address] [place] [address] [email or web address] Insurance Assigned Provider 01/29/24 documented as of this encounter Additional Source Comments The information contained in this document represents components of the legal health record. It is not the complete legal health record.[facility]
--- OUTSIDE RECORDS SUMMARY | 2025-10-15 10:57 | XMS_ITS | Encounter Summary ---
Author Organization [facility] Address [address] [place] [address] Phone Care Team Providers Care Picc Nurse Name Role Phone Sommerdaxa Bhaskar Shah DO Primary Care Provider [phone] Bhaskar Fisher DO Unavailable Encounter Details Date Type Department Care Team ([facility] st Contact Info) Description 08/31/2023 Transcribe Orders Virtual Department [address] [place] [address] Bhaskar Fisher DO [address] [facility] [address] [place] [address] [email or web address] Diverticulitis of large intestine [...] Primary documented in this encounter Care Teams Picc Nurse Relationship Specialty Start Date End Date Bhaskar Fisher DO [email or web address] PCP - General 08/09/17 Bhaskar Fisher DO [address] [place] [id number] [email or web address] Insurance Assigned Provider 01/29/24 documented as of this encounter Additional Source Comments The information contained in this document represents components of the legal health record. It is not the complete legal health record.[facility]
--- OUTSIDE RECORDS SUMMARY | 2025-10-15 10:57 | XMS_ITS | Encounter Summary ---
Author Organization [facility] Address [address] [place] [address] Phone Care Team Providers Care Pay Agent Name Role Phone Bhaskar Fisher DO Primary Care Provider [phone] Bhaskar Fisher DO Unavailable Encounter Details Date Type Department Care Team (Late st Contact Info) Description 03/08/2024 Procedure Pass [facility] Admitting Dept Virtual Department [address] [place] [address] Social History Tobacco Use Types Packs/Day Years [...] on filedocumented in this encounter Care Teams Pay Agent Relationship Specialty Start Date End Date Bhaskar Fisher DO PCP - General 08/09/17 Bhaskar Fisher DO [address] [place] [address] Insurance Assigned Provider 01/29/24 documented as of this encounter Additional Source Comments The information contained in this document represents components of the legal health record. It is not the complete legal health record.[facility]
--- OUTSIDE RECORDS SUMMARY | 2025-10-15 10:57 | XMS_ITS | Data Portability ---
Author Organization [facility] Telehealth Patient Home Address [address] [place] [address] Care Team Providers Care Wood Lather Name Role Phone KUNAL STEINER Staffing Account Manager Assessment Encounter Date Assessment Date Assessment LastModified by Organization Details LastModified Time 02/21/2021 02/21/2021 [address] [place] [address] (MEDICAL INSURANCE VERIFIER) MDM MODERATE MUST MEET 2 OUT OF [...] COVERED Not available 02/21/2021 15:04:07 06/16/2022 06/16/2022 [address] [place] [address] (MEDICAL INSURANCE VERIFIER) : MDM LOW MUST MEET 2 OF [...] COVERED Not available 06/16/2022 16:09:25 07/09/2023 07/09/2023 [address] [place] [address] (MEDICAL INSURANCE VERIFIER) MDM MODERATE MUST MEET 2 OUT OF [...] expressed understanding. Follow up as noted [place] [address] [place] [address] (MEDICAL INSURANCE VERIFIER) MDM HIGH MUST MEET 2 OUT OF [...] Organization Details Last Modified Time Details Appointments FOLLOW UP 2024 02:45P Mike ZHANG Not available Not available Not available FOLLOW UP 15 2025 02:45P M DR ZHANG Not available Not available Not available Lab testoster one, total, serum 2024 025 [facility], [address] [place] [address], [address], 01/09/2025 12:27:55 vitamin B12 + folate, serum or blood 2024 025 [facility], [address] [place] [address], [address], 01/03/2025 13:28:04 vitamin D, 25-hydrox y, total, serum 2024 025 [facility], [address] [place] [address], [address], 01/08/2025 11:40:57 CBC w/ auto diff 2024 025 [facility], [address] [place] [address], [address], 12/27/2024 16:43:23 TSH + T4, serum 2024 025 [facility], [address] [place] [address], [address], 12/27/2024 16:43:23 CMP, serum or plasma 2024 025 [facility], [address] [place] [address], [address], 12/27/2024 16:43:23 iron + TIBC + ferritin, serum 2024 025 [facility], [address] [place] [address], [address], 12/27/2024 16:43:23 lyme disease igg+igm, serum, reflex western blot 2024 025 [email or web address] [facility], [address] [place] [address], [address], 01/05/2025 16:41:00 CBC w/ auto diff 2022 023 [facility], [address] [place] [address], [address], 07/12/2023 11:31:10 CMP, serum or plasma 2022 023 [facility], [address] [place] [address], [address], 07/12/2023 11:31:09 ESR (erythroc yte sedimenta tion rate), blood 2022 023 [facility], [address] [place] [address], [address], 07/09/2023 16:10:44 testoster one, total, serum 2022 023 [facility], [address] [place] [address], [address], 07/15/2023 12:31:57 vitamin B12 + folate, serum or blood 2022 023 [facility], [address] [place] [address], [address], 07/12/2023 11:31:10 vitamin B12 + folate, serum or blood 2020 021 [facility], [address] [place] [address], [address], 02/24/2021 11:57:26 iron + TIBC + ferritin, serum 2020 021 [facility], [address] [place] [address], [address], 02/24/2021 11:57:26 CMP, serum or plasma 2020 021 PAUL Not available 02/24/2021 11:57:26 CBC w/ auto diff 2020 021 PAUL Not available 02/24/2021 11:57:26 ESR (erythroc yte sedimenta tion rate), blood 2020 021 PAUL Not available 02/24/2021 11:57:26 C-reactiv e protein, quantitat charanjit, serum or plasma 2020 021 [email or web address] Not available 02/21/2021 15:10:48 Referral None recorded. Procedures None recorded. Surgeries None recorded. Imaging CT, chest, w/o contrast - Not Required Procedure codes: 09323 Call Reference #: [id number] Resolutio n: Completed on at 12:33 pm. Call ref #[id number]. 2024 025 [facility], [address] [place], [address], 01/03/2025 08:17:15 XR, knee, 3 view 2020 021 [facility], [address] [place], [address], 04/08/2021 08:41:56 XR, lumbosacr al spine, 2 or 3 view 2020 021 [facility], [address] [place], [address], 03/07/2021 09:45:10 CT, abdomen + pelvis, w/ contrast 2020 021 [facility], [address] [place], [address], 03/07/2021 09:45:09 Medication Orders lorazepam 0.5 mg tablet 2024 025 PAUL Not available 12/27/2024 16:40:19 amoxicill in 875 mg-potass ium clavulana te 125 mg tablet 2022 023 [email or web address] Not available 10/21/2024 11:04:20 lorazepam 0.5 mg tablet 2022 023 PAUL Not available 07/09/2023 16:09:17 Medrol (Chinedu) 4 mg tablets in a dose pack 2021 022 Not available 07/09/2023 15:08:17 azithromy jennifer 250 mg tablet 2021 022 Not available 07/09/2023 15:07:12 Patient TargetsNo targets recorded. Patient Instructions Encounter Date Encounter Id Patient Instructions Last Modified By Organization Details Last Modified Time 02/21/2021 [id number] back care and preventing injuries: care instructions Not available 02/21/2021 15:08:30 getting back to normal after low back pain: care instructions Not available 02/21/2021 15:08:30 learning about relief for back pain Not available 02/21/2021 15:08:30 abdominal pain: care instructions Not available 02/21/2021 15:03:52 07/09/2023 [id number] gastroesophageal reflux disease (GERD): care instructions Not available 07/09/2023 16:04:10 12/27/2024 [id number] cough: care instructions Not available 12/27/2024 16:30:09 gastroesophageal reflux disease (GERD): care instructions Not available 12/27/2024 16:35:58 Reason for Referral None Reported. Results Created Date Observation Date Name Description Value Unit Range Abnormal Flag Note LastModifiedBy Organization Detail LastModifiedTime 03/25/2003/25/2021 XR, knee No observ ation [facility]. [email or web address] [address] [place], [address], 04/09/2021 08:09:19 04/29/20 21 04/29/2021 MRI, knee, w/o contr ast No observ ation record ed. [email or web address] [facility] (Mri) [address] [place], [address], 04/30/2021 08:59:42 09/23/20 23 09/15/2023 CT, abdom en + pelvi s, w/wo contr ast No observ ation record ed. [email or web address] [facility] (Medical Records) [address] [place], [address], 09/26/2023 21:45:49 04/15/20 24 04/15/2024 XR, wrist No observ ation record ed. [email or web address] [facility] (Medical Records) [address] [place], [address], 04/17/2024 08:29:41 03/20/20 25 03/16/2025 CT, chest , w/o contr ast No observ ation record ed. [email or web address] (Medical Records) [address] [place], [address], 03/22/2025 21:42:50 Result Notes None recorded. Problems Name Problem SNOMED Code Status Onset Date Resolution Date Notes Provider Name and Address Organization Details Recorded Time Maxillary sinusitis 96650073 Active 2018 Right Christi alcantar [facility] 5 08:51:14 Gastroeso phageal reflux disease 709430366 Active 2018 Christi alcantar [facility] 5 08:51:06 Tendiniti s 27313965 Active 2018 R great toe Christi alcantar [facility] 5 08:51:14 Disorder of vitamin B12 252430544 Active 2018 Christi alcantar [facility] 5 08:51:14 Peptic ulcer 74160332 Active 2018 Christi alcantar [facility] 5 08:51:14 Multiple nodules of lung 445618332 Active 2018 Matilda alcantar [facility] 0 12:10:29 COVID-19 495765494 Active 2021 Christi Roy null, [facility] 5 08:51:13 Diverticu litis 236316957 Active 2022 Bhaskar Zhang, [address] [place] [address], [address], [facility] 3 16:32:37 Diverticu litis of sigmoid colon 253109816 Active 2022 Christi Roy null, [facility] 5 08:51:06 Solitary nodule of lung 217596174 Active 2022 Christisharon Roy null, [facility] 5 08:51:06 Fatigue 32629981 Active 2022 Bhaskar Zhang, [address] [place] [address], [address], [facility] 5 13:39:12 Anxiety 65715760 Active 2022 Christisharon Roy [facility], [facility] 5 08:51:06 Computed tomograph y result abnormal 833796678 Active 2022 Christi Roy [facility] 5 08:51:13 Left lower quadrant pain 241478044 Active 2022 Christi Roy [facility], [facility] 5 08:51:13 Cough 35801348 Active 2024 Bhaskar Zhang, [address] [place] [address], [address], [facility] 5 16:29:27 Hypotesto steronism 289396765727 4 Active 2024 Bhaskar Zhang DO [address] [place] [address], [address], [facility] 5 13:38:54 Problem Notes None recorded. Procedures Surgical History Date Name Laterality Status Provider Name and Address Organization Details Recorded Time 03/14/20 19 Colonoscopy completed Bhaskar Zhang DO [address] [place] [address], [address], [facility] 03/17/2019 06:49:50 Imaging Results None recorded. Procedure Notes None recorded. Medical Equipment None Reported. Allergies Allergen ID Allergen Name Allergen Category Reaction Reaction Severity Criticality Documentation Date Start Date Code Code System Note Provider Name and Address Organization Details Recorded Time 57061 prochlorp erazine medicatio n other Not available high 09/18/20252018 8704 RxNorm Steven douglass letemil gantmp ing Not Available paul - External Data Service - prod 5 22:29:04 2803 Compazine medicatio n Not available Not available Not available 12/09/201806099 6 [facility] 9 09:21:03 Medications Name [...] Not Available bisacodyl 5 mg tablet,luz elena mckenzie release 05/26 completed Not Available Not Available [...] tablet, extended release TAKE 1 TABLET DAILY 2024 active Not Available Not Available Not Avai lable Boostrix Tdap 2.5 Lf unit-8 mcg-5 Lf/0.5 mL intramuscul ar syringe 05/26 completed Not Available Not Available Not Available testosteron e 50 mg/5 gram (1 %) transdermal gel APPLY 2 PACKETS TOPICALLY EVERY DAY 09/25 completed Not Available Not Available Not Available [...] Updated DateTime 5 180.34 cm 33.2 kg/m2 402888. 42 g 79 /min 96 % 122/72 mm[Hg] Christi Roy [facility] 5 16:21:47 Date Recorded Body weight Body mass index (BMI) Body height Heart rate Oxygen saturation Systolic And Diastolic Provider Name and Address Organization Details Last Updated DateTime 1 158011. 8 g 32.9 kg/m2 180.34 cm 92 /min 98 % 116/70 mm[Hg] Bhaskar Zhang, DO [address] [place], [address], [facility] 1 14:50:09 Date Recorded Body height Body mass index (BMI) Body weight Heart rate Oxygen saturation Systolic And Diastolic Provider Name and Address Organization Details Last Updated DateTime 1 180.34 cm 32.9 kg/m2 697796. 8 g 91 /min 98 % 120/70 mm[Hg] Humera Gil [facility] 1 10:34:04 Date Recorded Body weight Heart rate Oxygen saturation Systolic And Diastolic Provider Name and Address Organization Details Last Updated DateTime 07/09/2023 052779.43 g 82 /min 98 % 135/65 mm[Hg] Pamela Conley [facility] 07/09/2023 15:12:53 Social History Question Answer Notes LastModified by Organizat ion Details LastModified Time Tobacco Smoking Status Never Smoker Not Available [facility] 08/27/2020 03:36:23 What Was The Date Of Your Most Recent Tobacco Screening? 12/27/2024 [email or web address] Information not available 12/27/2024 Sex: Unknown Functional Status None recorded. Mental Status None recorded. Family History Nothing Reported. Medical History No medical history recorded. Immunizations Vaccine Type Date Status Note Provider Nam e and Address Organization Details Recorded Time zoster recombinant 5 completed Bhaskar Zhang DO [address] [place], [address], [facility] 11/25/2024 18:38:14 zoster recombinant 5 completed Kimo alcantar [facility] 02/02/2025 14:52:21 Influenza, split virus, quadrivalent, preservative 8 completed Matilda alcantar [facility] 01/03/2020 12:10:34 Tdap 9 completed Matilda alcantar [facility] 01/03/2020 12:10:34 Influenza, split virus, quadrivalent, preservative 9 completed Matilda alcantar [facility] 01/03/2020 12:10:34 Past Encounters Encounter ID Performer Location Encounter Start Date Encounter Closed Date Diagnosis/Indication Diagnosis SNOMED-CT Code Diagnosis ICD10 Code Diagnosis IMO Codes Diagnosis Note [id number] Bhaskar Zhang [facility] [address],[place] [address] 12/09/2018 11:16:33 12/09/2018 12:38:33 Left flank pain 305826187 R10.9 resolving believe this was from his trip Orchitis a nd epididymitis 539306775 N45.3 Stress 20646831 Z73.3 Disorder o f vitamin B12 463810055 E53.8 [id number] Bhaskar Zhang [address],[place] [address] 01/04/2019 15:47:34 01/04/2019 16:56:34 Painful rectal bleeding 821342890 K62.5 will need to have a colonsocop y given his LLQ abd pain as well as its response to the cipro ?divertic? Hemorrhoids 73264853 K64 .9 treated with anusol [id number] Bhaskar Zhang [facility] [address] [facility], [place] [address] 05/26/2019 09:08:33 05/26/2019 10:15:01 Inguinal pain 489044905 R10.2 is going to move [employer] and will let us know Multiple n odules of lung 709405715 R91.8 reassuranc e and will have a repeat ct exam Adult [facility] examination 711053454 Z00.00 [id number] Bhaskar Zhang [facility] Internal [facility] [address] [facility],[place] [address] 01/03/2020 11:49:36 01/03/2020 12:34:12 Pain of left testicle 6186742775 0053746 N50.812 pain in left testicle must r/o signif testicular path first [id number] Bhaskar Zhang [facility] [address],[place] [address] 02/21/2021 14:46:11 02/21/2021 15:44:00 Left lower quadrant pain 415706136 R10.32 Anemia 428300875 D64.9 Low back pain 907988348 M54.5 [id number] Bhaskar Zhang [address],[place] [address] 03/25/2021 10:28:00 03/25/2021 11:26:13 Pain in right knee 8208620579 80295 M25.561 needs XR of the knee, concern for possible tissue tear needs fu work up Rupture of tendon of biceps 344492016 M66.821 following with [facility] [id number],[place] [address] 06/16/2022 15:26:41 06/17/2022 08:14:32 COVID-19 805163608 U07.1 [id number] Bhaskar Zhang [facility] [address],[place] [address] 07/09/2023 15:02:05 07/09/2023 16:12:04 Gastroesophageal reflux disease 239975341 K21.9 quiet Diverticul itis of sigmoid colon 235064735 K57.32 Multiple n odules of lung 948897416 R91.8 reassuranc e and will have a repeat ct exam we will catch this on his ct orderd Fatigue 00856579 R53.83 [facility] Anxiety 02917507 F41.9 [id number] [facility] [address],[place] [address] 12/27/2024 16:07:11 12/29/2024 08:02:59 Renewal of prescription 055439072 Z76.0 done Depression screening 171 913688 Z13.31 SCREENING NEGATIVE Cough 10252913 R05.9 ct ordered Fatigue 64084111 R53.83 will need to chk lab et Gastroesop hageal reflux disease 033187644 K21.9 quiet Multiple n odules of lung 018803175 R91.8 reassuranc e and will have a repeat ct exam we will catch this on his ct orderd Anxiety 61335824 F41.9 Health Concerns Section Related Observation LastModified by Organization Detai ls LastModified Time None Recorded Concern Status LastModified by Organization Details LastModified Time None Recorded Advance Directives Directive None Recorded Payers Insurance Date Sequence Insurance Name Policy Number Policy Hutchins Covered Member ID Hutchins Member ID Guarantor Name 12/27/2024 1 [facility] [id number] Segun Mckeon [id number] Segun Mckeon 03/26/2021 [employer] Segun Mckeon Notes Date Note [...] chills some nocturnal diaphoresis no diarrhea Bhaskar Zhang, DO [address] [facility], [place], [address], [facility] 02/21/2021 15:12:53 1 text/html ROS [...] fall on his right side THOMAS NELSON [address] [place] [address], [address], [facility] Internal [facility] 03/25/2021 10:55:25 2 text/html ROS as noted in the HPI patient is evaluated via tele/video assessment per patient consentduring current pandemiconset of covid today hit hard like a ERCOM covid test positiveheadache , fever to 101 , sore throat , aches Bhaskar Zhang DO [address] [place] [address], [address], [facility] 06/16/2022 16:24:32 3 text/html ROS as noted in the HPI here for rechk and is overall ok except for the probwith the diverticit is becoming a major problem in that it is recurring and he is having severe pain in d=sigmoid area and having abdom distentionno vomiting sl nauseadoes feel feverish Bhaskar Zhang DO [address] [place], [address], [facility] 07/09/2023 16:09:30 5 text/html ROS as noted in the HPI here for rechkrelates that he has been ok but having a great deal of fatigue Bhaskar Zhang DO [address] [place], [address], [facility] 12/27/2024 16:50:01
--- OUTSIDE RECORDS SUMMARY | 2025-10-15 10:57 | XMS_ITS | Encounter Summary ---
Author Organization [facility] Address [address] [facility] [address] [place] [address] Phone Care Team Providers Care C D Reactor Operator Name Role Phone Bhaskar Fisher Primary Care Provider [phone] Bhaskar Fisher Unavailable Reason for Referral * MRI/CAT Scan - Closed Specialty Diagnoses / Procedures Referred By Jag hernandez Referred To Contact Radiology Diagnoses LLQ pain Procedures CT Abdomen/Pelvis Leigh Perales PA Phone: tel: fax: Referral ID Status Reason Start Date Expiration Date Visits Re quested Visits Authorized [id number] Closed 05/16/2019 05/15/2020 1 1 Encounter Details Date Type Department Care Team (Latest Contact Info) Description 05/16/2019 Transcribe Orders Virtual Department [address] [place] [address] Leigh Perales PA [address] [place] [address] LLQ pain (Primary Dx) Social History Tobacco [...] above. TOTAL CTDIvol: 10.2 mGy POS - [id number] Narrative 05/22/2019 9:56 AM EDT COMPARISON: None. [...] above. TOTAL CTDIvol: 10.2 mGy POS - [id number] Leigh GUZMAN IMG CT ABD/PELVIS Final Res ult documented in this encounter Visit Diagnoses Diagnosis LLQ pain- Primary Abdominal pain, left lower quadrant LLQ pain Abdominal pain, left lower quadrant documented in this encounter Care Teams C D Reactor Operator Relationship Specialty Start Date End Date Bhaskar Fisher DO PCP - General 08/09/17 Bhaskar Fisher DO [address] [place] [address] [email or web address] Insurance Assigned Provider 01/29/24 documented as of this encounter Additional Source Comments The information contained in this document represents components of the legal health record. It is not the complete legal health record.[facility]
--- OUTSIDE RECORDS SUMMARY | 2025-10-15 10:57 | XMS_ITS | Encounter Summary ---
Author Organization [facility] Address [address] [facility] [address] [place] [address] Phone Care Team Providers Care Dispensing Optician Apprentice Name Role Phone Bhaskar Fisher DO Primary Care Provider [phone] Bhaskar Fisher DO Unavailable Encounter Details Date Type Department Care Team (Late st Contact Info) Description 02/21/2021 Transcribe Orders Virtual Department [address] [place] [address] Bhaskar Fisher DO [address] [facility] [address] [place] [address] [email or web address] Low back pain, unspecified back pain laterality, [...] Primary documented in this encounter Care Teams Dispensing Optician Apprentice Relationship Specialty Start Date End Date Bhaskar Fisher DO [email or web address] PCP - General 08/09/17 Bhaskar Fisher DO [address] [place] [address] [email or web address] Insurance Assigned Provider 01/29/24 documented as of this encounter Additional Source Comments The information contained in this document represents components of the legal health record. It is not the complete legal health record.[facility]
--- OUTSIDE RECORDS SUMMARY | 2025-10-15 10:57 | XMS_ITS | Encounter Summary ---
Author Organization [facility] Address [address] [address] Phone Care Team Providers Care Bed Laborer Name Role Phone Bhaskar Fisher DO Primary Care Provider [phone] Bhaskar Fisher DO Unavailable Encounter Details Date Type Department Care Team (Late st Contact Info) Description 03/14/2019 Procedure Pass [facility] Endoscopy Admitting Dept Virtual Department [address] [place] [id number] Social History Tobacco Use Types Packs/Day Years [...] on filedocumented in this encounter Care Teams Bed Laborer Relationship Specialty Start Date End Date Bhaskar Fisher DO PCP - General 08/09/17 Bhaskar Fisher DO [address] [place] [address] [email or web address] Insurance Assigned Provider 01/29/24 documented as of this encounter Additional Source Comments The information contained in this document represents components of the legal health record. It is not the complete legal health record.[facility]
--- OUTSIDE RECORDS SUMMARY | 2025-10-15 10:57 | XMS_ITS | Encounter Summary ---
Author Organization [facility] Address [address] [facility] [address] [place] [address] Phone Care Team Providers Care Oil Rig Driller Name Role Phone Phillip Bhaskar Shah DO Primary Care Provider [phone] Bhaskar Fisher DO Unavailable Encounter Details Date Type Department Care Team (Late st Contact Info) Description 12/28/2018 Ancillary Orders Virtual Department [address] [place] [address] Bhaskar Fisher DO [address] [place] [address] [email or web address] Abdominal pain, unspecified abdominal location; Left flank [...] site documented in this encounter Care Teams Oil Rig Driller Relationship Specialty Start Date End Date Bhaskar Fisher DO PCP - General 08/09/17 Bhaskar Fisher DO [address] [place] [address] (work) [email or web address] Insurance Assigned Provider 01/29/24 documented as of this encounter Additional Source Comments The information contained in this document represents components of the legal health record. It is not the complete legal health record.[facility]
--- OUTSIDE RECORDS SUMMARY | 2025-10-15 10:57 | XMS_ITS | Clinical Summary ---
Author Organization [facility] Address [address] [place] [id number] Phone Care Team Providers Care Corduroy Cutting Supervisor Name Role Phone Frank Zhang DO Primary Care Provider [phone] Frank Zhang DO Unavailable Allergies Active Allergy [...] this topic Medical Devices Implanted Type Area Director Sales Training Device Identifier Shelf Expiration Date Model / Serial / Lot Button Right: Arm Metal Nate Right Arm Procedures Procedure Name Priority Date/Time Associated Diagnosis Comments ENDOSCOPY, COLON 03/08/2024 8:46 AM EDT from Last 3 Months or Most Recently Relevant to Health Maintenance Results * ENDOSCOPY, COLON (03/08/2024 8:46 AM EDT) Narrative Transcriptions Melita Siu MD - 03/08/2024 8:46 AM EDT [facility] Patient Name: Segun Mckeon Attending MD:: MELITA SIU MD, Procedure Date: 03/08/2024 8:46 AM Date of : 1970 Age: 53 Admit Type: Outpatient Gender: Male Room: [facility] 02 Referring MD: FRANK ZHANG DO Exam [...] monitored continuously. The Olympus adult variable colonoscope [id number] #1 was introduced through the anus and [...] 8:46 AM Procedure Code(s): --- Professional --- 78737, Colonoscopy, flexible; with removal of tumor(s), polyp(s), or other lesion(s) by snare technique --- Technical --- 44490, Colonoscopy, flexible; with removal of tumor(s), polyp(s), or other lesion(s) by snare technique Diagnosis Code(s): --- Professional --- Z86.010, Personal history of colonic polyps D12.5, Benign neoplasm of sigmoid colon --- Technical --- Z86.010, Personal history of colonic polyps D12.5, Benign neoplasm of sigmoid colon CPT copyright 2021 [employer]. All rights reserved. The codes documented in this report are preliminary and upon test bore helper reviewmay be revised to meet current compliance requirements. Procedure Date: 03/08/2024 8:46:[address] [place] [id number] Frank Zhang DO GI PROCEDURE ORDERABLES Final Re sult from Last 3 Months or Most Recently Relevant to Health Maintenance [place] [address] [place] [address] [place] [address] [place] [address] [employer] Care Teams Corduroy Cutting Supervisor Relationship Specialty Start Date End Date Frank Zhang DO PCP - General 08/09/17 Frank Zhang DO [address] [place] [address] Insurance Assigned Provider 01/29/24 Additional Source Comments The information contained in this document represents components of the legal health record. It is not the complete legal health record.[facility]
== END 2025-10-15 09:36 | disposition home or self-care (01) ==
LOC: HO.MANLDS 09:35
PROVIDERS: Visit Provider Internal Medicine
DX: R89.1 Abnormal level of hormones in specimens from other organs, systems and tissues (principal)
CPT/HCPCS: 36415; 84403